=== PATIENT | male | born 1945 | race Caucasian/White ===

== ENCOUNTER → 2017-03-05 | Outpatient (CLI) | payer OTHER ==
--- NOTE | 2017-03-05 15:29 | DIAGNOSTIC IMAGING REPORT ---
VIDEO SWALLOW HISTORY: R13.10 dysphagia TECHNIQUE: Video fluoroscopic evaluation of swallowing was performed in the AP and lateral projections by the speech pathology staff. The patient is fed nectar-thick and thin liquid barium, a barium coated wafer, and barium pudding. FLUOROSCOPY TIME: 2.6 minutes. NUMBER OF FLUOROSCOPY IMAGES: 0 COMPARISON STUDY: 09/04/2009 FINDINGS: With swallowing thin liquid barium, there is penetration but no evidence of aspiration. There is slightly diminished hyoid excursion. There is vallecular and piriform sinus residue. There was no aspiration or penetration when swallowing nectar thick liquids pudding or cracker with paste. There is no aspiration when swallowing pudding. IMPRESSION: 1. Penetration when swallowing thin liquids but no evidence of aspiration 2. Lingular performed sinus residue 3. Please see the speech pathologist report for detailed findings and recommendations. Electronically signed by: Tripp Carreon M.D. 03/05/2017 3:28 PM Dictated Date/Time: 03/05/2017 3:22 PM
--- NOTE | 2017-03-05 18:11 | SWALLOWING EVALUATION ---
REFERRING SPEECH PATHOLOGIST: n/a HISTORY: This 71 year-old man was referred for a VFSS at [facility] in order to address c/o increasing solid food dysphagia. The patient has a PMH significant for CVA, hypertension, and previous VFSS in 2009. Results of the previous VFSS were: (+) evidence of dysmotility and spasm, (+) cricopharyngeal spasm, and no aspiration. Currently the patient's diet level is regular. PROCEDURE: The patient was seen in the Radiology Department of [facility] for the VFSS. Cursory examination of the oral cavity revealed adequate dentition. Movement of the articulators was WNL. The patient was seated on a stool and was viewed in both the Anterior-Posterior (A-P) and Lateral planes. Volitional phonation exercises completed in the A-P plane revealed bilateral vocal fold movement and vocal intensity within functional limits. In the lateral plane, the patient was given the following boluses: 1 tsp. thin liquid barium x 2, single swallow thin liquid barium self-presented from a cup, sequential swallows of thin liquid barium self-presented from a cup, 1 tsp. nectar-thick liquid barium, single swallow nectar-thick liquid barium self-presented from a cup, 1 tsp. barium pudding, and 1 club cracker with barium pudding. The patient was then repositioned into the A-P plane and given 1 tsp. barium pudding. RESULTS: Oral Stage: Lip closure weak as evidenced by anterior thin liquid bolus loss from (L) labial juncture with bolus escape progressing beyond mid chin. There was decreased lingual control during oral bolus hold as evidenced by posterior escape of less than half the bolus during oral bolus hold exercise. Timely and efficient mastication and brisk tongue motion for posterior bolus transport. Trace residue lined the oral cavity after swallowing. Initiation of pharyngeal swallowing occurred when the bolus head was in the valleculae. Mild generalized weakness evidenced during the oral stage of the swallow. Pharyngeal Stage: No bolus between the soft palate and pharyngeal wall. Partial laryngeal elevation with partial approximation of the arytenoids to the epiglottic petiole. No anterior hyoid excursion. Complete epiglottic inversion. Incomplete laryngeal vestibular closure. Diminished pharyngeal stripping wave. Bilateral bulging of the valleculae and pyriform sinuses demonstrating weakened pharyngeal contraction. Minimal distention and duration of the PES opening with marked obstruction of flow. Narrow column of contrast between the tongue base and pharyngeal wall. Minimal pharyngeal clearance of solid food boluses after the swallow. It should also be noted that there is evidence of cricopharyngeal impression on the esophageal lumen. Disordered hyoid motion and PES opening are the most significant contributors to moderate-severe pharyngeal dysphagia. There was no pascual aspiration during this study. There was pascual penetration of thin liquid x 1 that was recovered by the patient with a throat-clear response. Esophageal Stage: Mild distal esophageal dysmotility noted as a pudding bolus transited the esophagus. SUMMARY/RECOMMENDATIONS: This patient presents with moderate oral-pharyngeal dysphagia. In addition, the patient presents with s/s mild esophageal dysfunction. The following is recommended: 1. SLIPPERY diet: choose foods that are moist, loose, slippery; avoid foods that are dry, doughy, pasty; use condiments liberally to make foods slippery 2. Compensatory Strategies: Alternate solids and liquids frequently during meals; drink warm liquids during meals and avoid icy cold beverages 3. Consideration of f/u with both ENT and GI services re: minimal PES opening. 4. Consideration of f/u with outpatient [facility] services for dysphagia therapy. A summary of the results and recommendations was discussed with the patient immediately following the study. He is anticipating f/u with the referring physician. He will need further orders from the physician in order to have further specialty interventions. Thank you for referral of this patient. Please contact me at if any additional information is needed.
== END | disposition home or self-care (01) ==
LOC: C.RAD 12:53
PROVIDERS: ATTEND Internal Medicine Geriatric Medicine
DX: R13.10 Dysphagia, unspecified (principal)

== ENCOUNTER 2023-04-28 16:49 | Inpatient (IN) ==
--- NOTE | 2023-04-28 17:06 | ED Triage Note ---
Date of Service April 28, 2023 Provider in Triage Author: Mirela Baltazar History of Present Illness This patient was briefly evaluated while in triage. An abbreviated physical exam was performed. This patient is a 78-year-old Male who presents to the ED for evaluation of chest pain. The patient was diagnosed with COVID at the beginning of the year. Has had pain in his chest and SOB with intermittent cough since his COVID. Gets SOB with exertion that is progressively getting worse. [facility] Physical Exam GENERAL: Non-toxic and in no acute distress. HEENT: Pupils equal. No obvious scleral icterus. HEART: Regular rate and rhythm. LUNGS: Clear to auscultation. No accessory muscle use. ABDOMEN: Soft, non-tender to palpation. NEURO: Alert and oriented. No obvious neurological deficits on quick neuro exam. Initial orders for labs and / or imaging were placed and patient was placed in the waiting area until a bed is available. Please see further documentation for the full ED course. MDM / Impression Impression Impression: Chest pain, Dyspnea
[2023-04-28] MEDS: SODIUM CHLORIDE 0.9% 500 ML IV STA (17:23)
--- NOTE | 2023-04-28 18:09 | Emergency Department Note ---
Impression & Plan Chest pain, Dyspnea ED Provider Note ED Provider Note NAME: ANKITA DYE AGE:78 SEX: Male : 1945 ARRIVES VIA: Private vehicle INFORMANT: Patient ED PROVIDER(s): Meagan Novoa DO CHIEF COMPLAINT: Chest pain, shortness of breath, referred from the [place] HPI: This is a 78-year male presents emergency ferment after [facility] complaining of chest pain and shortness of breath over the last several weeks. 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 He states after the symptoms began he will go and sit down and rest and then the symptoms will slowly dissipate. He states he did have COVID the beginning of March when symptoms first started he thought it was related to his recent COVID illness. He denies any leg swelling. He denies any radiation of the pain into his back, neck, or arm, states it is centrally located at the inferior aspect of the sternum. He denies any coming abdominal pain, nausea or vomiting. Denies dizziness or lightheadedness or accompanying diaphoresis. Patient states he has had a prior history of a heart attack several years ago. He does not routinely follow with cardiology. PAST MEDICAL HISTORY:See Below PAST SURGICAL HISTORY:See Below FAMILY HISTORY:See Below SOCIAL HISTORY:See Below HOME MEDICATIONS:See Below ALLERGIES:See Below VITALS:See Below PHYSICAL EXAMINATION: GENERAL: alert, well appearing, well nourished, no distress, non-toxic EYE EXAM: normal conjunctiva, PERRL and EOM's grossly intact OROPHARYNX: no exudate, no erythema, lips, buccal mucosa, and tongue normal and mucous membranes are moist NECK: supple, no nuchal rigidity, no adenopathy, non-tender LUNGS: Clear to auscultation. Normal chest wall mechanics, no w/r/r HEART: no murmurs, S1 normal and S2 normal ABDOMEN: abdomen soft, non-tender, normo-active bowel sounds, no masses, no rebound or guarding. BACK: Back is symmetrical on inspection and there is no deformity, no midline tenderness, no CVA tenderness. SKIN: no rashes, petechiae, orbruising UPPER EXTREMITIES: upper extremities are grossly normal. FROM, nml pulses b/l. LOWER EXTREMITIES: No pitting edema. FROM, nml pulses b/l. NEURO EXAM: Normal sensorium, cranial nerves II-XII grossly intact, normal speech, no facial droop,nogross weakness of arms, no gross weakness of legs. Gross sensation intact. No ataxia. Vital Signs: reviewed and remarkable Differential Diagnosis: acute coronary syndrome, pericarditis, pulmonary embolus, aortic dissection, pneumonia, pneumothorax, musculoskeletal pain, shingles, GERD, GI bleed, as well as others were considered MEDICAL DECISION MAKING: This is a 78-year-old male who presents with a concerning story for exertional chest pain and shortness of breath over the course of the last several weeks. He was afebrile and vital signs stable. Patient seen in a waiting room area as he presented on day of high volume and acuity initially. Labs drawn and sent, IV established, EKG and chest x-ray performed bedside interpreted by me. Patient was noted to have a left bundle branch block however this was present from 2 years ago as well. Patient states he does have a prior history of LA. Due to recent COVID infection, he was sent for CT angiography additionally, no PE or other acute vascular pathology noted. Given concern for cardiac etiology, case discussed with hospitalist team for additional evaluation and management. Patient's initial troponin negative, however feel he would benefit and is high risk for ACS given history and risk factors. Patient eventually was able to be placed in regular patient room was monitored on telemetry. Consultation(s): 2134: Discussed with Dr. Parada, [place] hospitalist team, for additional evaluation and management. ER Treatment Provided: See below Diagnostics Interpreted By Me: -ECG: Normal sinus at 75, normal axis, left bundle branch block, normal QTc, nonspecific ST/T wave changes; left bundle branch block noted on prior EKG from May 07, 2021 -Cardiac Monitoring: An order was placed for continuous cardiac monitoring. The monitor shows a rate of 68 with normal sinus rhythm. -Laboratory studies: As stated above and show below. -Imaging studies: X-ray Chest: A single view study of the chest was reviewed and was negative for cardiomegaly, focal infiltrate, effusion, pulmonary edema, or wide mediastinum. Triage Nursing Note Reviewed Prior/Outside Records Reviewed -prior echo reviewed Past Med/Surg History Medical History GERD (gastroesophageal reflux disease) Type 2 diabetes mellitus diet control Hyperlipidemia Hypertension History of CVA (cerebrovascular accident) (1995) Diverticulosis Surgical History S/P left inguinal hernia repair (05/23/21) Open Left Inguinal Hernia Repair with Mesh(Left) - Chris Guerrero MD, FACS 05/23/2021 History of esophagogastroduodenoscopy (EGD) History of colonoscopy History of tooth extraction History of tonsillectomy History of appendectomy Family History Father Diabetes Coronary heart disease Brother Diabetes Mother Stroke Other No family history of adverse response to anesthesia Denies family history of Colon cancer Ovarian cancer Prostate cancer Myocardial infarction Breast cancer Social History Smoking Status: Never smoker Tobacco Type: Cigarettes Age Started Using Tobacco: 11; Age Quit Using Tobacco: 51; packs per day: 1; Cigarettes Per Day: 20; Second Hand Exposure: No; Do You Dip or Chew Tobacco: No; Hx Alcohol Use: No Hx Substance Use: No Preferred Language: Spanish Communication Ability: Effective Visual Impairment: No Limitations Hearing Ability: Use of Hearing Aid Soft Top Installer Required: No Beliefs That Will Affect Care: None marital status: Current Living Situation: Spouse current occupational status: retired 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 How many Children do You have: 3 Other Information That Helps Us Care for You: No Feels Safe at Home: Yes Safety Concerns: Feels Safe At This Time Childhood Exposure to Second-Hand Smoke: No Diet: regular caffeine: Yes during the past year weight has: remained stable Dental Care, Regularly: Yes Physical Activity Frequency: Daily Seatbelt Use: always Sunscreen Use: No Assistive Devices: Hearing Aid - Bilateral Allergies Allergies Allergy/AdvReac Type Severity Reaction Status Date / Time pravastatin Allergy Intermediate Itching Verified 04/28/23 21:42 simvastatin Allergy Intermediate Itching Verified 04/28/23 21:42 Sulfa (Sulfonamide Allergy Intermediate MAKES EYES Verified 04/28/23 20:22 Antibiotics) ITCHY Home Meds Home Medications Medication Instructions Recorded Confirmed ascorbic acid (vitamin C) 500 mg 500 mg PO DAILY 10/19/18 04/28/23 capsule aspirin 325 mg tablet 325 mg PO DAILY 10/19/18 04/28/23 blood sugar diagnostic (OneTouch #10 ea 10/19/18 12/23/22 Verio test strips) lancets (CartivaTouch UltraSoft #50 ea 10/19/18 12/23/22 Lancets) multivitamin (One Daily 1 tab PO DAILY 10/19/18 04/28/23 Multivitamin tablet) omeprazole 20 mg capsule,delayed 20 mg PO HS 05/15/21 04/28/23 release lisinopril 20 0 tab PO QAM 04/28/23 04/28/23 mg-hydrochlorothiazide 25 mg tablet loratadine 10 mg tablet (Claritin) 10 mg PO DAILY 04/28/23 04/28/23 rosuvastatin 20 mg tablet 0 mg PO DAILY Dyslipidemia 04/28/23 04/28/23 Results & Data (ED) Vital Signs Vital Signs - 24 hr 04/28/23 17:03 04/28/23 19:50 04/28/23 19:51 Temperature 36.7 C Temperature Source Temporal Artery Scan Pulse Rate 77 76 Respiratory Rate 18 15 Respiratory Effort / Characteristics Non-Labored Spontaneous Respiratory Depth Normal Respiratory Pattern Regular Blood Pressure 136/79 138/84 Blood Pressure Mean 98 102 Blood Pressure Position Sitting Pulse Oximetry 96 97 97 Oxygen Delivery Method Room Air Room Air Room Air Sepsis Recent Fever Within 48 Hours No Sepsis New/Unexplained Change in Mental Status N/A Sepsis Action Taken by Nursing No Action Required 04/28/23 19:51 04/28/23 20:00 04/28/23 20:30 Temperature Temperature Source Pulse Rate 73 67 Respiratory Rate 19 14 Respiratory Effort / Characteristics Respiratory Depth Respiratory Pattern Blood Pressure 130/82 149/81 H Blood Pressure Mean 98 103 Blood Pressure Position Pulse Oximetry 97 95 97 Oxygen Delivery Method Room Air Room Air Room Air Sepsis Recent Fever Within 48 Hours Sepsis New/Unexplained Change in Mental Status Sepsis Action Taken by Nursing 04/28/23 21:00 04/28/23 21:30 04/28/23 21:54 Temperature Temperature Source Pulse Rate 66 67 71 Respiratory Rate 17 15 Respiratory Effort / Characteristics Respiratory Depth Respiratory Pattern Blood Pressure 142/80 H 125/75 Blood Pressure Mean 100 91 Blood Pressure Position Pulse Oximetry 97 96 Oxygen Delivery Method Room Air Room Air Sepsis Recent Fever Within 48 Hours Sepsis New/Unexplained Change in Mental Status Sepsis Action Taken by Nursing 04/28/23 22:00 Temperature Temperature Source Pulse Rate 67 Respiratory Rate 21 Respiratory Effort / Characteristics Respiratory Depth Respiratory Pattern Blood Pressure 144/83 H Blood Pressure Mean 103 Blood Pressure Position Pulse Oximetry 96 Oxygen Delivery Method Room Air Sepsis Recent Fever Within 48 Hours Sepsis New/Unexplained Change in Mental Status Sepsis Action Taken by Nursing Laboratory Data 04/28/23 17:27 04/28/23 17:27 Lab Results 04/28/23 04/28/23 Range/Units 17:27 20:41 WBC 7.06 (4.8-10.8) K/ul RBC 5.59 (4.70-6.10) M/uL Hgb 16.3 (14.0-18.0) g/dl Hct 48.2 (42.0-52.0) % MCV 86.2 (80.0-100.0) fL MCH 29.2 (25.0-34.0) pg MCHC 33.8 (32.0-36.0) g/dL RDW Std Deviation 39.5 (36.4-46.3) fL RDW Coeff of Alexei 12.8 (11.5-14.5) % Plt Count 217 (130-400) K/uL MPV 9.9 (9.4-12.4) fL Immature Gran % (Auto) 0.4 % Neut % (Auto) 65.6 % Lymph % (Auto) 22.2 % [place] % (Auto) 10.1 % Eos % (Auto) 1.0 % Baso % (Auto) 0.7 % Neut # (Auto) 4.63 (1.40-6.50) K/uL Lymph # (Auto) 1.57 (1.20-3.40) K/uL [place] # (Auto) 0.71 H (0.11-0.59) K/uL Eos # (Auto) 0.07 (0.00-0.50) K/uL Baso # (Auto) 0.05 (0.00-0.20) K/uL Immature Gran # (Auto) 0.03 (0.01-0.20) K/uL PT 11.0 (9.0-12.0) Seconds INR 1.0 (0.9-1.1) APTT 27 (21-31) Seconds PTT Ratio 1.0 Sodium 134 L (136-145) mmol/L Potassium 4.1 (3.5-5.1) mmol/L Chloride 98 (98-107) mmol/L Carbon Dioxide 28 (21-32) mmol/L Anion Gap 8 (3-11) BUN 18 (6-23) mg/dl Creatinine 0.89 (0.6-1.4) mg/dl Est Cr Clr Drug Dosing 81.3 ml/min Est GFR ( Amer) 95.6 ml/min Est GFR (Non-Af Amer) 82.5 ml/min BUN/Creatinine Ratio 20.2 H (10-20) Glucose 154 H (70-99(Fasting)) mg/dl Calcium 9.6 (8.6-10.3) mg/dl Magnesium 1.8 (1.7-2.4) mg/dl Total Bilirubin 1.2 H (0.2-1.0) mg/dl AST 22 (13-39) U/L ALT 18 (7-52) U/L Alkaline Phosphatase 51 (34-104) U/L Troponin I High Sens 10.4 (0-20) pg/ml Total Protein 7.6 (6.0-8.3) gm/dl Albumin 4.2 (3.4-5.0) gm/dl Globulin 3.4 (2.5-4.0) gm/dl Albumin/Globulin Ratio 1.2 (0.9-2) Lipase 20 (11-82) U/L TSH 1.393 (0.300-4.500) uIu/ml Urine Color Yellow Urine Appearance Clear (Clear) Urine pH 6.5 (4.5-7.5) Ur Specific [place] > 1.045 H (1.000-1.030) Urine Protein Negative (Negative) Urine Glucose (UA) Negative (Negative) Urine Ketones Negative (Negative) Urine Blood Negative (Negative) Urine Nitrite Negative (Negative) Urine Bilirubin Negative (Negative) Urine Urobilinogen Negative (Negative) Ur Leukocyte Esterase Negative (Negative) Administered Medications Discontinued Medications Sodium Chloride (Nss) 500 mls @ 999 mls/hr IV .Q31M STA Stop: 04/28/23 17:36 Last Infusion: 04/28/23 20:06 Dose: Infused Documented By: Admin: 04/28/23 17:23 Dose: 999 mls/hr Documented By: SAMIR Magnesium Sulfate/Dextrose (Magnesium Sulfate / D5w) 1 gm in 100 mls @ 50 mls/hr IV ONE ONE Stop: 04/28/23 23:38 Last Infusion: 04/29/23 00:04 Dose: Infused Documented By: Admin: 04/28/23 22:01 Dose: 50 mls/hr Documented By: VANNESA Ioversol (Optiray 320 125ml) 116 ml IV ONCE ONE Stop: 04/28/23 19:17 Last Admin: 04/28/23 19:17 Dose: 116 ml Documented By: LITA Imaging Data Radiologist's Impression: Chest X-Ray 04/28/23 18:06 XR chest 1V portable CLINICAL HISTORY: cp, sob TECHNIQUE: Single frontal radiograph of the chest was obtained. Comparison: Comparison is made to chest radiograph 05/07/2021 FINDINGS: No lines and tubes are seen. Cardiomegaly is noted. Reticular interstitial opacities are seen. No evidence of pleural effusion or pneumothorax. IMPRESSION: No acute chest disease. ACT 112: Negative or not required by law. Electronically signed by: Emil Cota M.D. 04/28/2023 7:01 PM Chest CTA 04/28/23 18:09 Exam(s): CTA CHEST IV Amt: 116 ml optiray 320 EXAM: CT Angiography Chest With Intravenous Contrast CLINICAL HISTORY: Reason for exam: PE. TECHNIQUE: Axial computed tomographic angiography images of the chest with intravenous contrast. CTDI is 31 mGy and DLP is 824.65 mGy-cm. Automated exposure control was utilized for the study. A dose lowering technique was utilized adhering to the principles of ALARA. MIP reconstructed images were created and reviewed. COMPARISON: 04/20/2009. FINDINGS: Pulmonary arteries: Unremarkable. No pulmonary embolism. Aorta: Mild atherosclerotic disease of aorta with no aneurysm or dissection. Lungs: Minimal bulla in the right mid upper lung. Mild subpleural interstitial prominence with early honeycombing involving the lung bases concerning for early pulmonary fibrosis. There is multifocal multilobar basilar atelectasis, more significant within the bilateral lower lobes. No mass. Pleural space: Unremarkable. No significant effusion. No pneumothorax. Heart: Mild to moderate cardiomegaly with coronary artery calcifications. No significant pericardial effusion. No evidence of RV dysfunction. Bones/joints: No acute fracture. No dislocation. Soft tissues: Unremarkable. Lymph nodes: Unremarkable. No enlarged lymph nodes. Other findings: Visualized upper abdominal structures are unremarkable. Multilevel degenerative disease of the spine. IMPRESSION: 1. No pulmonary embolus or aortic dissection. 2. Findings suggestive of a chronic interstitial lung disease/early fibrosis, more significant in the lung bases/posterior lower lobes with superimposed multifocal basilar atelectasis. Otherwise no acute pulmonary process seen. Electronically signed by: Monse Hinojosa MD 04/28/23 20:26 PM Discharge Plan Visit Data Chief Complaint: Chest Pain Stated Complaint: CHEST PAIN ED Provider: Meagan Novoa Discharge Problem: Chest pain, Dyspnea Patient Disposition: Admitted As Inpatient Discharge Instructions Interventions: ED Discharge Assessment Last Done: 04/28/23 22:38
[2023-04-28 18:13] LABS: Basophils # (auto) 0.05 K/uL (0.00-0.20); Basophils % (auto) 0.7 %; Eosinophils # (auto) 0.07 K/uL (0.00-0.50); Hematocrit (blood only) 48.2 % (42.0-52.0); Hemoglobin 16.3 g/dl (14.0-18.0); Immature Granulocytes # (auto) 0.03 K/uL (0.01-0.20); Immature Granulocytes % (auto) 0.4 %; Lymphocytes # (auto) 1.57 K/uL (1.20-3.40); Lymphocytes % (auto) 22.2 %; Mean Corpuscular Hemoglobin 29.2 pg (25.0-34.0); Mean Corpuscular Hgb Conc 33.8 g/dL (32.0-36.0); Mean Corpuscular Volume 86.2 fL (80.0-100.0); Mean Platelet Volume 9.9 fL (9.4-12.4); Monocytes # (auto) 0.71 K/uL (0.11-0.59); Monocytes % (auto) 10.1 %; Neutrophils # (auto) 4.63 K/uL (1.40-6.50); Neutrophils % (auto) 65.6 %; Platelet Count 217 K/uL (130-400); RDW Coefficient of Variation 12.8 % (11.5-14.5); RDW Standard Deviation 39.5 fL (36.4-46.3); Red Blood Count 5.59 M/uL (4.70-6.10); White Blood Count 7.06 K/ul (4.8-10.8)
[2023-04-28 18:24] LABS: Albumin Globulin Ratio 1.2 (0.9-2); Albumin Level 4.2 gm/dl (3.4-5.0); BUN Creatinine Ratio 20.2 (10-20); Bilirubin,Total 1.2 mg/dl (0.2-1.0); Calcium 9.6 mg/dl (8.6-10.3); Creatinine Clr Calc Pharmacy 81.3 ml/min; Est GFR (African American) 95.6 ml/min; Est GFR (Non-African American) 82.5 ml/min; Globulin 3.4 gm/dl (2.5-4.0); Magnesium 1.8 mg/dl (1.7-2.4); Potassium 4.1 mmol/L (3.5-5.1); Total Protein 7.6 gm/dl (6.0-8.3)
[2023-04-28 18:29] LABS: Troponin I High Sensitivity 10.4 pg/ml (0-20)
[2023-04-28 18:34] LABS: Partial Thromboplastin Time 27 Seconds (21-31)
[2023-04-28 18:38] LABS: Thyroid Stimulating Hormone 1.393 uIu/ml (0.300-4.500)
--- NOTE | 2023-04-28 19:03 | XRay Report ---
XR chest 1V portable CLINICAL HISTORY: cp, sob TECHNIQUE: Single frontal radiograph of the chest was obtained. Comparison: Comparison is made to chest radiograph 05/07/2021 FINDINGS: No lines and tubes are seen. Cardiomegaly is noted. Reticular interstitial opacities are seen. No guzman dence of pleural effusion or pneumothorax. IMPRESSION: No acute chest disease. ACT 112: Negative or not required by law. Electronically signed by: Emil Cota M.D. 04/28/2023 7:01 PM
[2023-04-28] MEDS: OPTIRAY 320 125ml IV ONE (19:17)
--- NOTE | 2023-04-28 20:27 | CT Scan Report ---
Exam(s): CTA CHEST IV Amt: 116 ml optiray 320 EXAM: CT Angiography Chest With Intravenous Contrast CLINICAL HISTORY: Reason for exam: PE. TECHNIQUE: Axial computed tomographic angiography images of the chest with intravenous contrast. CTDI is 31 mGy and DLP is 824.65 mGy-cm. Automated exposure control was utilized for the study. A dose lowering technique was utilized adhering to the principles of ALARA. MIP reconstructed images were created and reviewed. COMPARISON: 04/20/2009. FINDINGS: Pulmonary arteries: Unremarkable. No pulmonary embolism. Aorta: Mild atherosclerotic disease of aorta with no aneurysm or dissection. Lungs: Minimal bulla in the right mid upper lung. Mild subpleural interstitial prominence with early honeycombing involving the lung bases concerning for early pulmonary fibrosis. There is multifocal multilobar basilar atelectasis, more significant within the bilateral lower lobes. No mass. Pleural space: Unremarkable. No significant effusion. No pneumothorax. Heart: Mild to moderate cardiomegaly with coronary artery calcifications. No significant pericardial effusion. No evidence of RV dysfunction. Bones/joints: No acute fracture. No dislocation. Soft tissues: Unremarkable. Lymph nodes: Unremarkable. No enlarged lymph nodes. Other findings: Visualized upper abdominal structures are unremarkable. Multilevel degenerative disease of the spine. IMPRESSION: 1. No pulmonary embolus or aortic dissection. 2. Findings suggestive of a chronic interstitial lung disease/early fibrosis, more significant in the lung bases/posterior lower lobes with superimposed multifocal basilar atelectasis. Otherwise no acute pulmonary process seen. Electronically signed by: Monse Hinojosa MD 04/28/23 20:26 PM
[2023-04-28 21:01] LABS: Appearance Urine Clear (Clear); Bilirubin Urine Negative (Negative); Blood Urine Negative (Negative); Color Urine Yellow; Glucose Urine UA Negative (Negative); Ketones Urine Negative (Negative); Leukocyte Esterase Urine Negative (Negative); Nitrite Urine Negative (Negative); Protein Urine Negative (Negative); Specific Gravity Urine > 1.045 (1.000-1.030); Urobilinogen Urine Negative (Negative); pH Urine 6.5 (4.5-7.5)
--- NOTE | 2023-04-28 21:39 | History & Physical Report ---
Date of Service April 28, 2023 Assessment & Plan (1) Chest pain: Plan: Worsening SAXENA and sternal pain with exertion x 1 month Patient notes that he was out chopping wood with his chainsaw, and developed substernal chest pain that resolved when sitting down Per patient, the chest pain has been exertional / predictable; stable angina Troponin WNL x2 EKG revealed NSR at 75 bpm; QTc 442; LBBB noted with some morphology change, however does not meet Sgarbossa's criteria for discordant ST elevation >5mm Review of prior EKG in April 2021 showed a nonspecific intraventricular conduction block with widened QRS; LBBB present at this time Chest CTA revealed no PE or aortic dissection; chronic interstitial lung disease and fibrosis CXR NAF TSH WNL Continue telemetry monitoring Stress Echo ordered, pending A.m. CBC, BMP, Mag (2) Type 2 diabetes mellitus: Plan: Diet controlled; not currently on medications Last A1c at 6.9% on 02/17/2023 Glucose 154 on admission Hold insulin for now T2DM diet BSG ACHS Adjust regimen as needed (3) Hyperlipidemia: Plan: Continue rosuvastatin (4) Hypertension: Plan: Continue lisinopril-HCTZ (5) GERD (gastroesophageal reflux disease): Plan: Continue omeprazole or pantoprazole equivalent (6) History of CVA (cerebrovascular accident): Plan: In 1992, per patient Continue ASA Plan Disposition: Obs - [facility] Telemetry Full code AHA, T2DM Diet VTE PPx: TEDs (consider adding chemical DVT PPx for extended stay) History of Present Illness Chief Complaint: Chest pain Primary Care Provider: CANDICE Reyes Kenneth is a pleasant 78-year-old male with PMH of T2DM, HTN, HLD, CVA, GERD, and diverticulosis. He presented for chest pain and SAXENA that has been worsening over the past month. Patient notes that he gets significantly winded when he goes out to chop wood with his chainsaw, but this resolves after sitting for a while. He endorses no CP at time of admission. When the pain comes on, it is located substernally; no radiation. Patient has not been taking anything for the pain, but notes he take ibuprofen on occassion for body aches. He took all of his regular morning medications; no recent change in medications. He does not take any medications for diabetes; reports he ahs been borderline and managing it with diet. He denies smoking / tobacco use; endorses occassional, social alcohol use. Hx of a stroke in 1995. No PMHx of MIs. Patient's also notes he may have had pericarditis in the past, but they are not sure. Patient does not use supplemental oxygen therapy at home. He notes he had COVID in March. 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 Vitals stable at time of admission. ED course: NSS 500 mL IV ROS: Patient endorses substernal chest pain with exertion, SAXENA, and neuropathy in feet (chronic). Patient denies fever, chills, nightsweats, dizziness, lightheadedness, JAMISON, L arm pain, L jaw pain/pressure, SOB at rest, back pain, pain between shoulder blades, abdominal pain, N/V/D, dysuria, burning with urination, and numbness/tingling/pain/redness in the arms or legs. Allergies Allergy/AdvReac Type Severity Reaction Status Date / Time pravastatin Allergy Intermediate Itching Verified 04/28/23 21:42 simvastatin Allergy Intermediate Itching Verified 04/28/23 21:42 Sulfa (Sulfonamide Allergy Intermediate MAKES EYES Verified 04/28/23 20:22 Antibiotics) ITCHY Home Medications Medication Instructions Recorded Confirmed Type ascorbic acid (vitamin C) 500 mg 500 mg PO DAILY 10/19/18 04/28/23 History capsule aspirin 325 mg tablet 325 mg PO DAILY 10/19/18 04/28/23 History blood sugar diagnostic (OneTouch #10 ea 10/19/18 12/23/22 History Verio test strips) lancets (Global Protein SolutionsTouch UltraSoft #50 ea 10/19/18 12/23/22 History Lancets) multivitamin (One Daily 1 tab PO DAILY 10/19/18 04/28/23 History Multivitamin tablet) omeprazole 20 mg capsule,delayed 20 mg PO HS 05/15/21 04/28/23 History release lisinopril 20 0 tab PO QAM 04/28/23 04/28/23 History mg-hydrochlorothiazide 25 mg tablet loratadine 10 mg tablet (Claritin) 10 mg PO DAILY 04/28/23 04/28/23 History rosuvastatin 20 mg tablet 0 mg PO DAILY Dyslipidemia 04/28/23 04/28/23 History Past Med/Surg History Medical History GERD (gastroesophageal reflux disease) Type 2 diabetes mellitus diet control Hyperlipidemia Hypertension History of CVA (cerebrovascular accident) (1995) Diverticulosis Surgical History S/P left inguinal hernia repair (05/23/21) Open Left Inguinal Hernia Repair with Mesh(Left) - Chris Guerrero MD, FACS 05/23/2021 History of esophagogastroduodenoscopy (EGD) History of colonoscopy History of tooth extraction History of tonsillectomy History of appendectomy Family History Father Diabetes Coronary heart disease Brother Diabetes Mother Stroke Other No family history of adverse response to anesthesia Denies family history of Colon cancer Ovarian cancer Prostate cancer Myocardial infarction Breast cancer Social History Smoking Status: Never smoker Tobacco Type: Cigarettes Age Started Using Tobacco: 11; Age Quit Using Tobacco: 51; packs per day: 1; Cigarettes Per Day: 20; Second Hand Exposure: No; Do You Dip or Chew Tobacco: No; Hx Alcohol Use: No Hx Substance Use: No Preferred Language: Lithuanian Communication Ability: Effective Visual Impairment: No Limitations Hearing Ability: Use of Hearing Aid Straightener Hand Required: No Beliefs That Will Affect Care: None marital status: Current Living Situation: Spouse current occupational status: retired 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 How many Children do You have: 3 Other Information That Helps Us Care for You: No Feels Safe at Home: Yes Safety Concerns: Feels Safe At This Time Childhood Exposure to Second-Hand Smoke: No Diet: regular caffeine: Yes during the past year weight has: remained stable Dental Care, Regularly: Yes Physical Activity Frequency: Daily Seatbelt Use: always Sunscreen Use: No Assistive Devices: Hearing Aid - Bilateral Review of Systems Review of Systems: See HPI above Physical Exam Physical Exam: General: no acute distress; non-toxic appearing; well-nourished; cooperative HEENT: normocephalic, atraumatic; no scleral icterus; PERRLA; moist mucus membrane; vision intact; hearing aids in place Neck: supple; no JVD; no lymphadenopathy; trachea midline Skin: warm, dry without signs of tenting; no cyanosis; no rashes, bruising, lesions, or erythema noted CV: mild TTP of the lower sternum; RRR; S1/S2 normal; no murmurs/rubs/gallops; pulses intact and symmetric at radial, DP, and PT Lungs: no acute respiratory distress; symmetrical chest wall expansion; clear breath sounds across all lung vogel w/o adventitious sounds; no wheezing ABD: Soft, NTP; BS present; no rebound/guarding; no rashes, brusing noted on the abdomen MSK: no tics or fasciculations; no edema noted in the LEs b/l, nonerythematous; patient demonstrates the ability to wiggle toes b/l Neuro: A&Ox3; normal mood and affect; fluent speech; no focal deficits; sensation grossly intact in the LEs b/l Results & Data Results & Data Vital Signs (Past 12 Hours) Vital Signs Temp Pulse Resp BP Pulse Ox O2 Del Method 04/28/23 21:00 66 17 142/80 H 97 Room Air 04/28/23 20:30 67 14 149/81 H 97 Room Air 04/28/23 20:00 73 19 130/82 95 Room Air 04/28/23 19:51 97 Room Air 04/28/23 19:51 97 Room Air 04/28/23 19:50 76 15 138/84 97 Room Air 04/28/23 17:03 36.7 C 77 18 136/79 96 Room Air Laboratory Results Abnormal lab results 04/28/23 04/28/23 Range/Units 17:27 20:41 Dolores # (Auto) 0.71 H (0.11-0.59) K/uL Sodium 134 L (136-145) mmol/L BUN/Creatinine Ratio 20.2 H (10-20) Glucose 154 H (70-99(Fasting)) mg/dl Total Bilirubin 1.2 H (0.2-1.0) mg/dl Ur Specific [place] > 1.045 H (1.000-1.030) Diagnostic Findings Chest X-Ray 04/28/23 18:06 XR chest 1V portable CLINICAL HISTORY: cp, sob TECHNIQUE: Single frontal radiograph of the chest was obtained. Comparison: Comparison is made to chest radiograph 05/07/2021 FINDINGS: No lines and tubes are seen. Cardiomegaly is noted. Reticular interstitial opacities are seen. No evidence of pleural effusion or pneumothorax. IMPRESSION: No acute chest disease. ACT 112: Negative or not required by law. Electronically signed by: Emil Cota M.D. 04/28/2023 7:01 PM Chest CTA 04/28/23 18:09 Exam(s): CTA CHEST IV Amt: 116 ml optiray 320 EXAM: CT Angiography Chest With Intravenous Contrast CLINICAL HISTORY: Reason for exam: PE. TECHNIQUE: Axial computed tomographic angiography images of the chest with intravenous contrast. CTDI is 31 mGy and DLP is 824.65 mGy-cm. Automated exposure control was utilized for the study. A dose lowering technique was utilized adhering to the principles of ALARA. MIP reconstructed images were created and reviewed. COMPARISON: 04/20/2009. FINDINGS: Pulmonary arteries: Unremarkable. No pulmonary embolism. Aorta: Mild atherosclerotic disease of aorta with no aneurysm or dissection. Lungs: Minimal bulla in the right mid upper lung. Mild subpleural interstitial prominence with early honeycombing involving the lung bases concerning for early pulmonary fibrosis. There is multifocal multilobar basilar atelectasis, more significant within the bilateral lower lobes. No mass. Pleural space: Unremarkable. No significant effusion. No pneumothorax. Heart: Mild to moderate cardiomegaly with coronary artery calcifications. No significant pericardial effusion. No evidence of RV dysfunction. Bones/joints: No acute fracture. No dislocation. Soft tissues: Unremarkable. Lymph nodes: Unremarkable. No enlarged lymph nodes. Other findings: Visualized upper abdominal structures are unremarkable. Multilevel degenerative disease of the spine. IMPRESSION: 1. No pulmonary embolus or aortic dissection. 2. Findings suggestive of a chronic interstitial lung disease/early fibrosis, more significant in the lung bases/posterior lower lobes with superimposed multifocal basilar atelectasis. Otherwise no acute pulmonary process seen. Electronically signed by: Monse Hinojosa MD 04/28/23 20:26 PM Code Status & VTE Plan Code Status Full code VTE Prophylaxis Plan VTE Prophylaxis will be ordered: Yes PG Care Time/CCT Total # of Minutes Spent Total Time Spent with Patient: Total time spent is greater than 50% in coordination of care (as documented) at patient's floor/unit and/or counseling patient: Coding [place] [address] INT INP/OBS CARE MIN Patient Type Established History Detailed Exam Detailed Medical Decision Making Low Complexity Diagnoses Chest pain R07.9 Type 2 diabetes mellitus E11.9 Hyperlipidemia E78.5 Hypertension I10 GERD (gastroesophageal reflux disease) K21.9 History of CVA (cerebrovascular accident) Z86.73
[2023-04-28] MEDS: MAGNESIUM SULFATE / D5W 1 GM/100 ML BAG IV ONE (22:01)
[2023-04-28] MEDS ORDERED: GLUCAGON FOR INJ 1 MG VIAL SQ PRN (23:08)
[2023-04-28] MEDS ORDERED: DEXTROSE 50% 50 ML SYRINGE IV PRN (23:08)
[2023-04-28] MEDS ORDERED: GLUCOSE 40% GEL 15 GM TUBE PO PRN (23:08)
[2023-04-28] MEDS ORDERED: GLUCOSE 10 TAB/TUBE PO PRN (23:08)
[2023-04-28] MEDS ORDERED: ONDANSETRON INJ 2 MG/ML 2 ML VIAL IV PRN (23:08)
[2023-04-28] MEDS ORDERED: ACETAMINOPHEN 325 MG TAB PO PRN (23:08)
[2023-04-28] MEDS ORDERED: CARBOHYDRATES FOR HYPOGLYCEMIA PO PRN (23:08)
[2023-04-29 07:25] LABS: Basophils # (auto) 0.07 K/uL (0.00-0.20); Basophils % (auto) 1.1 %; Eosinophils # (auto) 0.11 K/uL (0.00-0.50); Eosinophils % (auto) 1.7 %; Hematocrit (blood only) 45.3 % (42.0-52.0); Hemoglobin 15.9 g/dl (14.0-18.0); Immature Granulocytes # (auto) 0.02 K/uL (0.01-0.20); Immature Granulocytes % (auto) 0.3 %; Lymphocytes # (auto) 1.32 K/uL (1.20-3.40); Lymphocytes % (auto) 20.6 %; Mean Corpuscular Hemoglobin 30.1 pg (25.0-34.0); Mean Corpuscular Hgb Conc 35.1 g/dL (32.0-36.0); Mean Corpuscular Volume 85.6 fL (80.0-100.0); Mean Platelet Volume 9.5 fL (9.4-12.4); Monocytes # (auto) 0.68 K/uL (0.11-0.59); Monocytes % (auto) 10.6 %; Neutrophils # (auto) 4.21 K/uL (1.40-6.50); Neutrophils % (auto) 65.7 %; Platelet Count 189 K/uL (130-400); RDW Standard Deviation 40.1 fL (36.4-46.3); Red Blood Count 5.29 M/uL (4.70-6.10); White Blood Count 6.41 K/ul (4.8-10.8)
[2023-04-29] MEDS: ASPIRIN 325 MG ECTAB PO SCH (08:17)
[2023-04-29] MEDS: LISINOPRIL/HCTZ 20/25MG 1 TAB PO SCH (08:17)
[2023-04-29] MEDS: ROSUVASTATIN CALCIUM 20 MG TAB PO SCH (08:17)
[2023-04-29 08:34] LABS: Calcium 9.5 mg/dl (8.6-10.3); Potassium 4.2 mmol/L (3.5-5.1)
[2023-04-29 08:40] LABS: BUN Creatinine Ratio 22.4 (10-20); Creatinine Clr Calc Pharmacy 107.9 ml/min; Est GFR (African American) 107.4 ml/min; Est GFR (Non-African American) 92.7 ml/min
--- NOTE | 2023-04-29 11:12 | Cardiology Consultation ---
Date of Consultation April 29, 2023 Assessment & Plan (1) Exertional angina: (2) Hypertension: (3) Hyperlipidemia: (4) Dyspnea on exertion: (5) LBBB (left bundle branch block): Plan ASSESSMENT/PLAN: 1. Angina: Symptoms concerning for angina and has multiple risk factors for CAD. Discussed ischemic evaluation. Stress echo inappropriate given left bundle branch block and he seems high risk for CAD based on symptoms and risk factors. Recommend cardiac catheterization. Risks and benefits were discussed with him in detail and he was made aware that CT surgery is not available at this facility. He was agreeable to proceed but has concerns that the CT may not cover it. Asked hospitalist service to touch base with care coordination to research his concerns. N.p.o. for now except for medications. Continue aspirin. Heparin drip not necessary as he has not had symptoms for approximately 1 week and troponins are negative. 2. Left bundle branch block: Discussed findings on ECG. Plan as above. Formal review of echo is pending. 3. Dyspnea on exertion: Cardiac evaluation as above. Also has findings on CT scan concerning for interstitial lung disease or pulmonary fibrosis per radiology. As per primary hospitalist service or potentially pulmonology at some point. He appears euvolemic. 4. Hypertension: Blood pressure mostly normotensive. Continue current regimen. If found to have CAD, would recommend beta-edenilson if tolerated. 5. Dyslipidemia: Continue high intensity statin therapy. Most recent LDL was less than 70. 6. Disposition: Cardiac catheter[facility] pending[facility]. Patient care communicated with Dr. Shah of the primary hospitalist service. Addendum: His came to the hospital. She states that he has been experiencing chest discomfort on a daily basis, including walking only 20 yards. This was once again discussed with him and he agreed. Although he denied having chest pain the day he came here when initially seen today, his states that he was having chest discomfort which prompted the visit. He agrees with this. He underwent cardiac catheterization and was found to have multivessel CAD including a complex proximal to mid LAD stenosis across large diagonal and SHAYNA II flow in the LAD. Circumflex had moderate to severe CAD and large OM with severe CAD. Small nondominant RCA with severe CAD. Recommend aspirin 81 mg daily. High intensity statin therapy. Given SHAYNA II flow and recurrent symptoms with minimal exertion based on discussion this afternoon, recommend heparin drip for now. Start low-dose beta-edenilson in the form of metoprolol tartrate 25 mg twice daily. Recommend transfer to CT surgery capable center for evaluation of CABG by CT surgery. Findings were discussed with he and his and other family members at the bedside. At the present time, patient is not sure where he would like to be transferred. He was asked to give it some thought and let us know once decided upon. Highly complex medical issues. Thank you for allowing me to participate in the care of your patient. Please call for any other questions or concerns. Sincerely, James Burnham M.D. Total time spent today was 80 minutes (not counting procedures), including [id number] time, counseling patient, coordinating care, updating family members, discussion with hospitalist service, transfer center, reviewing records, and completing documentation. History of Present Illness Reason for Consultation: chest pain Requesting Physician: Ty Shah Attending Physician: Ty Shah History of Present Illness Mr. Jones is a very pleasant 78-year-old gentleman with a history significant for type 2 diabetes, hypertension, dyslipidemia, prior tobacco abuse, stroke, and acid reflux. Since February 2023, he has been experiencing a substernal chest discomfort described as "just hurts" with associated shortness of breath. There is no radiation of the discomfort. It occurs when walking longer distances or with more strenuous activities. The severity improves quickly with rest but some form of discomfort can last up to 4 hours. His last significant episode was 1 week ago. But given the intermittent symptoms, he decided to come to the emergency department on 04/28/2023 and was admitted. His ECG demonstrated left bundle branch block. An exercise stress echo was ordered by the admitting team, which was canceled due to left bundle branch block. He denies melena, hematochezia, hematuria, or other bleeding. He denies syncope, near syncope, palpitations, or edema. He remains active. Review of systems: As above. Review of systems otherwise negative/unremarkable. Family history: Father had CABG at approximately 66 years of age. Social history: He quit smoking 20 or 30 years ago after smoking 1 to 2 packs/day. Occasional alcohol. Lives at home with his . Has 3 children. Retired but previously worked with [employer] at [employer]. He was unaccompanied. Allergies Allergy/AdvReac Type Severity Reaction Status Date / Time pravastatin Allergy Intermediate Itching Verified 04/28/23 21:42 simvastatin Allergy Intermediate Itching Verified 04/28/23 21:42 Sulfa (Sulfonamide Allergy Intermediate MAKES EYES Verified 04/28/23 20:22 Antibiotics) ITCHY Home Medications Medication Instructions Recorded Confirmed Type ascorbic acid (vitamin C) 500 mg 500 mg PO DAILY 10/19/18 04/28/23 History capsule aspirin 325 mg tablet 325 mg PO DAILY 10/19/18 04/28/23 History blood sugar diagnostic (OneTouch #10 ea 10/19/18 12/23/22 History Verio test strips) lancets (VentriPoint DiagnosticsTouch UltraSoft #50 ea 10/19/18 12/23/22 History Lancets) multivitamin (One Daily 1 tab PO DAILY 10/19/18 04/28/23 History Multivitamin tablet) omeprazole 20 mg capsule,delayed 20 mg PO HS 05/15/21 04/28/23 History release lisinopril 20 0 tab PO QAM 04/28/23 04/28/23 History mg-hydrochlorothiazide 25 mg tablet loratadine 10 mg tablet (Claritin) 10 mg PO DAILY 04/28/23 04/28/23 History rosuvastatin 20 mg tablet 0 mg PO DAILY Dyslipidemia 04/28/23 04/28/23 History Patient History Medical History GERD (gastroesophageal reflux disease) Type 2 diabetes mellitus diet control Hyperlipidemia Hypertension History of CVA (cerebrovascular accident) (1995) Diverticulosis Surgical History S/P left inguinal hernia repair (05/23/21) Open Left Inguinal Hernia Repair with Mesh(Left) - Chris Guerrero MD, FACS 05/23/2021 History of esophagogastroduodenoscopy (EGD) History of colonoscopy History of tooth extraction History of tonsillectomy History of appendectomy Family History Father Diabetes Coronary heart disease Brother Diabetes Mother Stroke Other No family history of adverse response to anesthesia Denies family history of Colon cancer Ovarian cancer Prostate cancer Myocardial infarction Breast cancer Social History Smoking Status: Never smoker Tobacco Type: Cigarettes Age Started Using Tobacco: 11; Age Quit Using Tobacco: 51; packs per day: 1; Cigarettes Per Day: 20; Second Hand Exposure: No; Do You Dip or Chew Tobacco: No; Hx Alcohol Use: No Hx Substance Use: No Preferred Language: Pashto Communication Ability: Effective Visual Impairment: No Limitations Hearing Ability: Use of Hearing Aid 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: No Beliefs That Will Affect Care: None marital status: Current Living Situation: Spouse current occupational status: retired 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 Alert and oriented. HEENT: Anicteric sclera. Neck: No JVD. No bruits. Normal carotid upstrokes bilaterally. Cardiac: No ventricular heave. Regular. Normal S1-S2. No murmurs, rubs, or gallops. Pulmonary: Clear to auscultation bilaterally without wheezes, rales, or rhonchi. Abdomen: Soft, nontender, nondistended, with normoactive bowel sounds. No bruits noted. Extremities: 2+ radial pulses bilaterally. 2+ posterior tibialis pulses bilaterally. No edema or cyanosis. Psychiatric: Affect appears appropriate. Results & Data Vital Signs (Past 12 Hours) Vital Signs Temp Pulse Pulse Resp BP Pulse Ox Pulse Ox 04/29/23 07:56 36.2 C L 71 16 114/70 96 04/29/23 07:06 69 04/28/23 23:14 96 04/28/23 23:13 36.4 C L 67 18 150/81 H 95 O2 Del Method O2 Del Method 04/29/23 07:56 Room Air 04/29/23 07:06 04/28/23 23:14 Room Air 04/28/23 23:13 Room Air Laboratory Results Laboratory Results - last 24 hr 04/28/23 04/28/23 04/28/23 17:27 20:41 23:41 WBC 7.06 RBC 5.59 Hgb 16.3 Hct 48.2 MCV 86.2 MCH 29.2 MCHC 33.8 RDW Std Deviation 39.5 RDW Coeff of Alexei 12.8 Plt Count 217 MPV 9.9 Immature Gran % (Auto) 0.4 Neut % (Auto) 65.6 Lymph % (Auto) 22.2 [place] % (Auto) 10.1 Eos % (Auto) 1.0 Baso % (Auto) 0.7 Neut # (Auto) 4.63 Lymph # (Auto) 1.57 [place] # (Auto) 0.71 H Eos # (Auto) 0.07 Baso # (Auto) 0.05 Immature Gran # (Auto) 0.03 PT 11.0 INR 1.0 APTT 27 PTT Ratio 1.0 Sodium 134 L Potassium 4.1 Chloride 98 Carbon Dioxide 28 Anion Gap 8 BUN 18 Creatinine 0.89 Est Cr Clr Drug Dosing 81.3 Est GFR ( Amer) 95.6 Est GFR (Non-Af Amer) 82.5 BUN/Creatinine Ratio 20.2 H Glucose 154 H POC Glucose Calcium 9.6 Magnesium 1.8 Total Bilirubin 1.2 H AST 22 ALT 18 Alkaline Phosphatase 51 Troponin I High Sens 10.4 11.1 Total Protein 7.6 Albumin 4.2 Globulin 3.4 Albumin/Globulin Ratio 1.2 Lipase 20 TSH 1.393 Urine Color Yellow Urine Appearance Clear Urine pH 6.5 Ur Specific Stickney > 1.045 H Urine Protein Negative Urine Glucose (UA) Negative Urine Ketones Negative Urine Blood Negative Urine Nitrite Negative Urine Bilirubin Negative Urine Urobilinogen Negative Ur Leukocyte Esterase Negative 04/29/23 04/29/23 06:57 08:16 WBC 6.41 RBC 5.29 Hgb 15.9 Hct 45.3 MCV 85.6 MCH 30.1 MCHC 35.1 RDW Std Deviation 40.1 RDW Coeff of Alexei 13.0 Plt Count 189 MPV 9.5 Immature Gran % (Auto) 0.3 Neut % (Auto) 65.7 Lymph % (Auto) 20.6 [place] % (Auto) 10.6 Eos % (Auto) 1.7 Baso % (Auto) 1.1 Neut # (Auto) 4.21 Lymph # (Auto) 1.32 [place] # (Auto) 0.68 H Eos # (Auto) 0.11 Baso # (Auto) 0.07 Immature Gran # (Auto) 0.02 PT INR APTT PTT Ratio Sodium 137 Potassium 4.2 Chloride 102 Carbon Dioxide 29 Anion Gap 6 BUN 15 Creatinine 0.67 Est Cr Clr Drug Dosing 107.9 Est GFR ( Amer) 107.4 Est GFR (Non-Af Amer) 92.7 BUN/Creatinine Ratio 22.4 H Glucose 132 H POC Glucose 130 H Calcium 9.5 Magnesium 2.0 Total Bilirubin AST ALT Alkaline Phosphatase Troponin I High Sens Total Protein Albumin Globulin Albumin/Globulin Ratio Lipase TSH Urine Color Urine Appearance Urine pH Ur Specific Stick[place] Urine Protein Urine Glucose (UA) Urine Ketones Urine Blood Urine Nitrite Urine Bilirubin Urine Urobilinogen Ur Leukocyte Esterase Diagnostic Findings History and physical report reviewed. ECGs personally reviewed: ECG 04/28/2023 1711: Sinus rhythm 75 bpm. LBBB. ECG 04/29/2013 at 10:13 AM: Sinus rhythm 74 bpm. LBBB. ECG 05/07/2021 1427: Sinus rhythm with IVCD. CTA chest 04/28/2023: No PE or aortic dissection. Chronic interstitial lung disease/early fibrosis per radiology. Mild to moderate cardiomegaly with coronary artery calcifications. Labs reviewed and notable for normal renal function, normal potassium, normal tr ansaminase levels, high-sensitivity troponin negative x 2, normal magnesium, elevated A1c, well-controlled LDL, normal blood counts. Medications Administered Current Inpatient Medications Acetaminophen (Acetaminophen 325 Mg Tab) 650 mg PO Q4H PRN PRN Reason: Pain or Fever Stop: 05/28/23 23:07 Aspirin (Aspirin 325 Mg Ectab) 325 mg PO DAILY [facility] Stop: 05/29/23 08:59 Last Admin: 04/29/23 08:17 Dose: 325 mg Dextrose (Dextrose 50% 50 Ml Syringe) 25 - 50 ml IV UD PRN; Protocol PRN Reason: Hypoglycemia Protocol Stop: 05/28/23 23:07 Glucagon (Glucagon For Inj 1 Mg Vial) 1 mg SQ UD PRN; Protocol PRN Reason: Hypoglycemia Protocol Stop: 05/28/23 23:07 Glucose (Glucose 10 Tab/Tube) 4 - 8 tab PO UD PRN; Protocol PRN Reason: Hypoglycemia Treatment Stop: 05/28/23 23:07 Glucose (Glucose 40% Gel 15 Gm Tube) 15 - 30 gm PO UD PRN; Protocol PRN Reason: Hypoglycemia Protocol Stop: 05/28/23 23:07 Lisinopril/HCTZ (Lisinopril/Hctz 20/25mg 1 Tab) 1 tab PO QAM IMELDA Stop: 05/29/23 08:59 Last Admin: 04/29/23 08:17 Dose: 1 tab Miscellaneous (Carbohydrates For Hypoglycemia ) 15 - 30 gm PO UD PRN PRN Reason: Hypoglycemia Protocol Stop: 05/28/23 23:07 Ondansetron HCl (Ondansetron Inj 2 Mg/Ml 2 Ml Vial) 4 mg IV Q6H PRN PRN Reason: Nausea Stop: 05/28/23 23:07 Pantoprazole Sodium (Pantoprazole 40 Mg Tab) 40 mg PO HS IMELDA Stop: 05/29/23 20:59 Rosuvastatin Calcium (Rosuvastatin Calcium 20 Mg Tab) 20 mg PO DAILY IMELDA Stop: 05/29/23 08:59 Last Admin: 04/29/23 08:17 Dose: 20 mg PG Care Time/CCT Total # of Minutes Spent Total Time Spent: 80 Total Time Spent with Patient: Total time spent is greater than 50% in coordination of care (as documented) at patient's floor/unit and/or counseling patient: Coding Level of Care Code 85400 INT INP/OBS CARE 3/75MIN Diagnoses Exertional angina I20.89 Hypertension I10 Hyperlipidemia E78.5 Dyspnea on exertion R06.09 LBBB (left bundle branch block) I44.7 Time Spent (min) 80
--- NOTE | 2023-04-29 12:52 | Pre Anesthesia Assessment ---
Date of Service April 29, 2023 Pre Sedation Assessment Vital Signs Temp Pulse Pulse Resp BP BP Pulse Ox 04/29/23 11:30 36.4 C L 16 119/70 96 04/29/23 07:56 36.2 C L 71 16 114/70 96 04/29/23 07:06 69 04/28/23 23:14 04/28/23 23:13 36.4 C L 67 18 150/81 H 95 04/28/23 22:30 67 20 132/77 94 04/28/23 22:00 67 21 144/83 H 96 04/28/23 21:54 71 04/28/23 21:30 67 15 125/75 96 04/28/23 21:00 66 17 142/80 H 97 04/28/23 20:30 67 14 149/81 H 97 04/28/23 20:00 73 19 130/82 95 04/28/23 19:51 97 04/28/23 19:51 97 04/28/23 19:50 76 15 138/84 97 04/28/23 17:03 36.7 C 77 18 136/79 96 Pulse Ox O2 Del Method O2 Del Method 04/29/23 11:30 Room Air 04/29/23 07:56 Room Air 04/29/23 07:06 04/28/23 23:14 96 Room Air 04/28/23 23:13 Room Air 04/28/23 22:30 Room Air 04/28/23 22:00 Room Air 04/28/23 21:54 04/28/23 21:30 Room Air 04/28/23 21:00 Room Air 04/28/23 20:30 Room Air 04/28/23 20:00 Room Air 04/28/23 19:51 Room Air 04/28/23 19:51 Room Air 04/28/23 19:50 Room Air 04/28/23 17:03 Room Air Cardiovascular RRR, no murmur, no edema Respiratory normal respiratory effort, lungs clear to auscultation Pre-Sedation Airway Assessment Smoking Status: Never smoker Mallampati Class: III ASA: ASA3 NPO Status Date of Last Intake of Fluids: 04/29/23 Time of Last Intake of Fluids: 08:00 Date of Last Intake of Solid Food: 04/29/23 Time of Last Intake of Solid Foods: 08:00 Last Intake of Solids Comment: light breakfast Procedure Planning Contraindications for Sedation: none Current Medications Reviewed: Yes Notes The planned sedation has been discussed with the patient. Informed Consent was obtained. I have identified the patient, determined the appropriateness of sedation and have assessed the patient immediately prior to the procedure. All medicine(s) and interventions are by my order.
[2023-04-29] MEDS: fentaNYL citrate PF 100 MCG/2 ML VIAL ONE (16:11)
[2023-04-29] MEDS: MIDAZOLAM HCL 1 MG/ML 2ML VIAL ONE (16:12)
[2023-04-29] MEDS: HEPARIN (PORCINE) 1000 UNIT/ML 10 ML (CATH LAB USE ONLY) ONE (16:12)
[2023-04-29] MEDS: niCARdipine HCL INJ 2.5 MG/ML 10 ML AMP ONE (16:12)
[2023-04-29] MEDS: NITROGLYCERIN/D5W 100MCG/ML 20ML SYR ONE (16:13)
[2023-04-29] MEDS: OPTIRAY 350 ONE (16:13)
--- NOTE | 2023-04-29 16:22 | Post Operative Brief Note ---
Cardiology Brief Post Op Date of Surgery April 29, 2023 Pre & Post Diagnosis Operation Date: 04/29/23 12:45 <No data on this case meets the specified criteria> Procedure Coronary angiography and left heart catheterization Show Operations Supervisor Cristiano Burnham MD Batch And Furnace Operator Deibler Estimated Blood Loss 20 Findings See Below Preliminary report: Multivessel CAD including severe proximal to mid LAD CAD with SHAYNA II flow. Moderate to severe dominant circumflex CAD and severe CAD involving large marginal branch. Nondominant RCA. Reviewed images with interventional cardiology. Recommend CT surgery evaluation for CABG. Full report to follow.
--- NOTE | 2023-04-29 16:22 | Post Anesthesia Assessment ---
Date of Service April 29, 2023 Post Sedation Assessment Vital Signs Temp Pulse Pulse Pulse Resp BP BP 04/29/23 16:15 71 16 04/29/23 13:05 87 16 132/81 04/29/23 11:30 36.4 C L 16 119/70 04/29/23 07:56 36.2 C L 71 16 114/70 04/29/23 07:06 69 04/28/23 23:14 04/28/23 23:13 36.4 C L 67 18 150/81 H 04/28/23 22:30 67 20 132/77 04/28/23 22:00 67 21 144/83 H 04/28/23 21:54 71 04/28/23 21:30 67 15 125/75 04/28/23 21:00 66 17 142/80 H 04/28/23 20:30 67 14 149/81 H 04/28/23 20:00 73 19 130/82 04/28/23 19:51 04/28/23 19:51 04/28/23 19:50 76 15 138/84 04/28/23 17:03 36.7 C 77 18 136/79 BP Pulse Ox Pulse Ox O2 Del Method O2 Del Method 04/29/23 16:15 123/84 93 Room Air 04/29/23 13:05 96 Room Air 04/29/23 11:30 96 Room Air 04/29/23 07:56 96 Room Air 04/29/23 07:06 04/28/23 23:14 96 Room Air 04/28/23 23:13 95 Room Air 04/28/23 22:30 94 Room Air 04/28/23 22:00 96 Room Air 04/28/23 21:54 04/28/23 21:30 96 Room Air 04/28/23 21:00 97 Room Air 04/28/23 20:30 97 Room Air 04/28/23 20:00 95 Room Air 04/28/23 19:51 97 Room Air 04/28/23 19:51 97 Room Air 04/28/23 19:50 97 Room Air 04/28/23 17:03 96 Room Air Recovery Score Activity: Moves 4 extremities Respiration: Deep Breath/Cough Circulation: +/-20% PreAnes Value Consciousness: Fully Awake Oxygen Saturation: > 92% On Room Air Post Anesthesia Score: 10 Discharge Sedation Level of Care: Fast Track Phase II Post Sedation Plan On clinical assessment, the patient appears to have tolerated the sedation without complications. Patient is recovering as anticipated. Patient will continue to be monitored by nursing and may be discharged when sedation discharge criteria are met per below protocol. Upon Completions of procedure up to 15 minutes continue every 5 minute vital signs and the P.A.R. score; then discharge to a Phase I or Fast Track to Phase II per the following guidelines: * Discharge Patient to appropriate Phase II area if PAR is 8 or greater or return to pre- procedure baseline. The post - procedure orders will be as directed. * If PAR score is less than 8 or not return to pre-procedure baseline then abi ravi will follow Phase I monitoring till PAR is reached for Phase II. The Phase I may be done in procedure room or may call to secure a Phase I area. * If naloxone or flumazenil are used for reversal, hold in Phase I for continued monitoring from when last reversal dose was given for a minimum of 60 minutes or longer pending the nurse and/or physician discretion of patient condition before discharge to Phase II. Please call the Sedation Physician to re-evaluate and complete post-note for discharge to Phase II area. Do NOT discharge from procedure sedation or Phase 1 until post- sedation evaluation note is complete by procedure /sedation MD Sedation Discharge Instructions to be given to the patient at discharge to home.
--- NOTE | 2023-04-29 17:00 | Cardiac Catheterization ---
[facility] Data: Marketing Systems Manager Cardiac Status Clinical evaluation leading to the procedure CAD Presenation: Stable angina Anginal Classification: CCS III Heart Failure: No Cardiogenic Shock within 24 Hours: No Cardiac Arrest within 24 Hours: No Imaging Studies Past 6 Months: Yes Stress Studies Past 6 Months: No Coronary Anatomy Dominant: Left Diagnostic Physicians Name: Cristiano Burnham MD Status: Elective Closure Device Percutaneous Entry Location: Radial Closure Device: Radial Band Recommendations: CABG Cardiac Cath Procedure Full Procedure Date April 29, 2023 Pre-Procedure Diagnosis Pre-Procedure Diagnosis: Angina AUC Score AUC Score: 7 Post-Procedure Diagnosis Post-Procedure Diagnosis: Severe CAD and Normal Intracardiac Pressures Procedure(s) Performed Procedure(s) Performed: Coronary Angiography and Left Heart Cath Social Human Services Assistants Cristiano Burnham MD Earth Boring Machine Operator(s) Deibler Estimated Blood Loss Estimated Blood Loss: < 20 ml Medication(s) Medication(s): Fentanyl, Heparin, Lidocaine 1%, Nicardipine and Versed Summary of Findings Procedures: 1. Coronary angiography 2. Left heart catheterization 3. Moderate sedation Indication: Mr. Jones is a pleasant 78-year-old gentleman with left bundle branch block,, type 2 diabetes, hypertension, dyslipidemia, prior tobacco abuse, stroke, and exertional angina with short walking distances. Coronary angiography: 1. Left main: No significant CAD. Calcifications noted. 2. Left anterior descending: Calcifications noted proximally to mid LAD. Proximal LAD 90% with diffuse CAD extending from late proximal to mid LAD of 70 to 95%. Large D1 originates from within the diseased LAD segment with ostial D1 70%. SHAYNA II flow noted within the distal LAD to apical LAD. 3. Circumflex: Dominant vessel. Mid circumflex 60%. Remainder of circumflex, PDA and PL without significant CAD. Small to medium caliber OM1. Very large caliber OM 2 mid 70%, involving a lateral branch. SHAYNA-3 flow. 4. Right coronary artery: RCA is small and nondominant. Early mid RCA 80 to 90%. Left heart catheterization: 1. Left ventriculography was not performed. 2. No aortic stenosis. Peak to peak gradient across the aortic valve was 0. 3. Normal LVEDP; 7 mmHg. Moderate sedation: 1. Sedation start time: 1528 2. Sedation end time: 1545 Impression: 1. Severe multivessel CAD including proximal to mid LAD with SHAYNA II flow, large D1, large OM2, nondominant RCA, with moderate to severe CAD involving dominant mid circumflex. 2. Normal left-sided filling pressure. 3. No aortic stenosis. Plan: 1. Images were reviewed with interventional cardiology. LAD CAD is complex and would be higher risk PCI. Recommended CT surgery evaluation to consider multivessel CABG. 2. Given that anginal symptoms are occurring with typical daily activities at h ome, recommend transfer to CT surgery capable center to consider CABG. 3. With SHAYNA II flow, recommend heparin drip if no contraindication. 4. Beta-edenilson, high intensity statin therapy, continue REGULO inhibitor. 5. Risk factor modification. Hemodynamics Rest Ao:: 102/62 Final Ao: 100/56 LV: 101/2/7 Recommendations Recommendations: CABG Specimens Specimens: None Radiation Exposure (mGy) 847 mGy. Fluoro time 3.5 min. Contrast (mls) 70 ml Procedural Complication(s) None Disposition PCU I attest to the content of the Intraoperative Record and any orders documented therein. Any exceptions are noted below. [facility] Card Cath Procedure Codes Cardiac Catheterization Procedure 1: Cardiovascular Cath Procedures: 36040 Coronaries and LHC (+/-LV) Moderate Sedation Procedure 1: Sedation/Anesthesia: 09142 Mod Sedation by the same physician;Init15 Min Child Age 5 & Up Procedure 2: Sedation/Anesthesia: 98051 Mod Sedation by the same physician; Ea [id number] Minutes PG Care Time/CCT Total # of Minutes Spent Total Time Spent with Patient: Total time spent is greater than 50% in coordination of care (as documented) at patient's floor/unit and/or counseling patient:
[2023-04-29] MEDS: SODIUM CHLORIDE 0.9% 1,000 ML IV SCH (17:08)
[2023-04-29] MEDS: Heparin IV Adult Wt-Based Standard *NO* INITIAL Bolus Protocol IV STA (17:24)
[2023-04-29] MEDS: HEPARIN SODIUM/DEXTROSE 25,000 UNITS/500 ML BAG IV SCH (17:33)
--- NOTE | 2023-04-29 19:16 | XCELERA ---
[id number]
[2023-04-29] MEDS: PANTOprazole 40 MG TAB PO SCH (21:01)
--- NOTE | 2023-04-29 22:36 | Electrocardiogram Report ---
Test Reason : Blood Pressure : / mmHG Vent. Rate : 075 BPM Atrial Rate : 075 BPM P-R Int : 148 ms QRS Dur : 158 ms QT Int : 396 ms P-R-T Axes : 000 -01 112 degrees QTc Int : 442 ms Poor data quality, interpretation may be adversely affected Normal sinus rhythm Left bundle branch block Abnormal ECG When compared with ECG of 07-MAY-2021 14:27, Fusion complexes are no longer Present Premature supraventricular complexes are no longer Present QRS duration has increased Confirmed by Cristiano Burnham ([id number]) on 04/29/2023 10:35:21 PM Referred By: Andrea Genao Confirmed By:Cristiano Burnham
--- NOTE | 2023-04-29 23:26 | Hospitalist Progress Note ---
Date of Service April 29, 2023 Assessment & Plan (1) Chest pain: Plan: Likely unstable angina Worsening SAXENA and sternal pain with exertion x 1 month Patient notes that he was out chopping wood with his chainsaw, and developed substernal chest pain that resolved when sitting down typical chest pain with multiple risk factors High risk Heart score of 7 Patient should forego stress test and get cath Consulted cardio who agrees with cardiac cath. Cardiac cath showed severe multi vessel disease Needs CABG [facility] will remain here overnight Placed on heparin drip CXR NAF TSH WNL Continue telemetry monitoring (2) Type 2 diabetes mellitus: Plan: Diet controlled; not currently on medications Last A1c at 6.9% on 02/17/2023 Glucose 154 on admission Hold insulin for now T2DM diet BSG ACHS Adjust regimen as needed (3) Hyperlipidemia: Plan: Continue rosuvastatin (4) Hypertension: Plan: Continue lisinopril-HCTZ (5) GERD (gastroesophageal reflux disease): Plan: Continue omeprazole or pantoprazole equivalent (6) History of CVA (cerebrovascular accident): Plan: In 1992, per patient Continue ASA Plan Disposition: Obs - Admit to [facility] Telemetry Full code AHA, T2DM Diet VTE PPx: TEDs (consider adding chemical DVT PPx for extended stay) Admission and Anticipated Discharge Date Admission Date: April 28, 2023 Subjective Patient reports no new symptoms. Currently chest pain free Review of Systems Review of Systems: All systems reviewed & are unremarkable except as noted in HPI & below Physical Exam Physical Exam: Gen.: No acute distress. Alert and oriented. HEENT: Anicteric sclera. Neck: No JVD. Cardiac: Regular. Normal S1-S2. No murmurs, rubs, or gallops. Pulmonary: CTA b/l Abdomen: Soft, nontender, nondistended, with normoactive bowel sounds. Extremities: No edema or cyanosis. Results & Data Results & Data Vital Signs (Past 12 Hours) Vital Signs Temp Pulse Pulse Resp BP BP Pulse Ox 04/29/23 23:07 36.7 C 66 18 124/70 96 04/29/23 21:37 04/29/23 21:30 04/29/23 20:37 04/29/23 19:37 04/29/23 19:25 36.6 C 70 18 117/71 96 04/29/23 17:37 82 125/83 94 04/29/23 17:07 82 108/69 94 04/29/23 16:48 36.5 C 70 18 126/67 18 L 04/29/23 16:15 71 16 123/84 93 04/29/23 13:05 87 16 132/81 96 04/29/23 11:30 36.4 C L 16 119/70 96 O2 Del Method 04/29/23 23:07 Room Air 04/29/23 21:37 Room Air 04/29/23 21:30 Room Air 04/29/23 20:37 Room Air 04/29/23 19:37 Room Air 04/29/23 19:25 Room Air 04/29/23 17:37 Room Air 04/29/23 17:07 Room Air 04/29/23 16:48 Room Air 04/29/23 16:15 Room Air 04/29/23 13:05 Room Air 04/29/23 11:30 Room Air PG Care Time/CCT Total # of Minutes Spent Total Time Spent with Patient: Total time spent is greater than 50% in coordination of care (as documented) at patient's floor/unit and/or counseling patient: Coding Level of Care Code 08942 SUB INP/OBS CARE 3/50MIN Diagnoses Chest pain R07.9 Type 2 diabetes mellitus E11.9 Hyperlipidemia E78.5 Hypertension I10 GERD (gastroesophageal reflux disease) K21.9 History of CVA (cerebrovascular accident) Z86.73
[2023-04-30 01:24] LABS: Partial Thromboplastin Ratio 1.8; Partial Thromboplastin Time 52 Seconds (21-31)
[2023-04-30 02:03] LABS: ANTI-Xa, LMWH(Low Molecular Wt 0.53 IU/ML (< 0.10)
--- NOTE | 2023-04-30 05:55 | Electrocardiogram Report ---
Test Reason : Blood Pressure : / mmHG Vent. Rate : 074 BPM Atrial Rate : 074 BPM P-R Int : 206 ms QRS Dur : 164 ms QT Int : 416 ms P-R-T Axes : 068 034 100 degrees QTc Int : 461 ms Normal sinus rhythm Left bundle branch block Abnormal ECG When compared with ECG of 28-APR-2023 17:11, No significant change was found Confirmed by Cristiano Burnham ([id number]) on 04/30/2023 5:54:42 AM Referred By: Andrea Genao Confirmed By:Cristiano Burnham
[2023-04-30 07:00] LABS: Mean Corpuscular Hemoglobin 29.8 pg (25.0-34.0); Mean Corpuscular Hgb Conc 34.9 g/dL (32.0-36.0); Mean Corpuscular Volume 85.5 fL (80.0-100.0); Mean Platelet Volume 9.8 fL (9.4-12.4); Platelet Count 183 K/uL (130-400); RDW Coefficient of Variation 12.9 % (11.5-14.5); RDW Standard Deviation 39.8 fL (36.4-46.3); Red Blood Count 5.03 M/uL (4.70-6.10); White Blood Count 6.75 K/ul (4.8-10.8)
[2023-04-30 07:27] LABS: BUN Creatinine Ratio 23.3 (10-20); Calcium 9.1 mg/dl (8.6-10.3); Creatinine Clr Calc Pharmacy 99.1 ml/min; Est GFR (African American) 103.7 ml/min; Est GFR (Non-African American) 89.5 ml/min; Potassium 3.8 mmol/L (3.5-5.1)
--- NOTE | 2023-04-30 07:37 | Discharge Summary ---
Date of Service April 30, 2023 Admission HPI Per Admitting Provider Kenneth is a pleasant 78-year-old male with PMH of T2DM, HTN, HLD, CVA, GERD, and diverticulosis. He presented for chest pain and SAXENA that has been worsening over the past month. Patient notes that he gets significantly winded when he goes out to chop wood with his chainsaw, but this resolves after sitting for a while. He endorses no CP at time of admission. When the pain comes on, it is located substernally; no radiation. Patient has not been taking anything for the pain, but notes he take ibuprofen on occassion for body aches. He took all of his regular morning medications; no recent change in medications. He does not take any medications for diabetes; reports he ahs been borderline and managing it with diet. He denies smoking / tobacco use; endorses occassional, social alcohol use. Hx of a stroke in 1995. No PMHx of MIs. Patient's also notes he may have had pericarditis in the past, but they are not sure. Patient does not use supplemental oxygen therapy at home. He notes he had COVID in March. 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 Vitals stable at time of admission. ED course: NSS 500 mL IV ROS: Patient endorses substernal chest pain with exertion, SAXENA, and neuropathy in feet (chronic). Patient denies fever, chills, nightsweats, dizziness, lightheadedness, JAMISON, L arm pain, L jaw pain/pressure, SOB at rest, back pain, pain between shoulder blades, abdominal pain, N/V/D, dysuria, burning with urination, and numbness/tingling/pain/redness in the arms or legs. Principal Diagnosis unstable angina complex multivessel CAD confirmed on [facility] LBBB h/o Chronic interstitial lung disease Discharge Exam pt is stable for transfer. cardiac is regular lungs are clear Discharge Data Allergies Allergy/AdvReac Type Severity Reaction Status Date / Time pravastatin Allergy Intermediate Itching Verified 04/28/23 21:42 simvastatin Allergy Intermediate Itching Verified 04/28/23 21:42 Sulfa (Sulfonamide Allergy Intermediate MAKES EYES Verified 04/28/23 20:22 Antibiotics) ITCHY Consultations 04/29/23 10:09 Consult Cardiology Routine Procedures Performed Operation Date: 04/29/23 12:45 Actual Procedures p Cineradiography w/Routine Exam - Cristiano Burnham MD p Cath, Left with Cors and Vent - Cristiano Burnham MD Ordered Studies 04/28/23 18:09 CT angio chest PE protocol Stat 04/29/23 15:13 CL Cath Imgs for PACS use only Stat Hospital Course (1) Chest pain: Worsening SAXENA and sternal pain with exertion x 1 month Patient notes that he was out chopping wood with his chainsaw, and developed substernal chest pain that resolved when sitting down Per patient, the chest pain has been exertional / predictable; stable angina Troponin WNL x2 EKG revealed NSR at 75 bpm; QTc 442; LBBB noted with some morphology change, however does not meet Sgarbossa's criteria for discordant ST elevation >5mm Review of prior EKG in April 2021 showed a nonspecific intraventricular conduction block with widened QRS; LBBB present at this time Chest CTA revealed no PE or aortic dissection; chronic interstitial lung disease and fibrosis [facility] confirms multivessel CAD including LAD with complex lesion proximal and involving D1 transfer to [facility] Dr Fonseca family aware via phone (2) Type 2 diabetes mellitus: Diet controlled; not currently on medications Last A1c at 6.9% on 02/17/2023 Glucose 154 on admission (3) Hyperlipidemia: Continue rosuvastatin as high dose statin to reduce cardiovascular risk (4) Hypertension: Continue lisinopril-HCTZ (5) GERD (gastroesophageal reflux disease): Continue omeprazole or pantoprazole equivalent (6) History of CVA (cerebrovascular accident): In 1992, per patient Continue ASA Plan given need for re-vascularization evaluation are coordinating transfer to Tertiary care center , [facility] accepted pt Full code Total Time Total Time Spent Total Time Spent (In Minutes): It required greater than 30 minutes to prepare this patient for discharge. Discharge Plan Discharge Items Patient Disposition: Transfer [facility] Reason For Visit: CHEST PAIN, SAXENA Discharge Diagnosis: unstable angina complex multivessel CAD confirmed on [facility] LBBB h/o Chronic interstitial lung disease Activity: Per Instructions section Activity Comment: per discharging facility Non-emergency contact: Primary Care Provider and [place] Call non-emergency contact if: your symptoms worsen Follow-up/Referrals: Andrea Genao, CARE DIRECTOR-C [Primary Care Provider] - Diet: Heart Healthy Addtl Attending Provider Instructions: please follow discharge and follow up instructions from your tertiary center Addtl Vice President Research Provider Instructions: will have heparin drip when transfer Pending Studies at Discharge: No Stand-Alone Forms: My [facility] [employer] Skilled Items Patient informed of condition?: Yes DNR: No Discharge Level of Care: Other Communicable Disease: No Discharge Prognosis: Stable Lines: Peripheral IV Urinary Catheter: No Medications and DC Order Prescriptions: New aspirin 81 mg Tablet,Delayed Release (Dr/Ec) 81 mg PO QAM Qty: 30 0RF Continued multivitamin [One Daily Multivitamin] tablet 1 tab PO DAILY ascorbic acid (vitamin C) 500 mg capsule 500 mg PO DAILY omeprazole 20 mg capsule,delayed release(DR/EC) 20 mg PO HS lisinopril-hydrochlorothiazide 20-25 mg tablet 0 tab PO QAM Rx Instructions: Pt unsure if this is his blood pressure medication, but states he does take a blood pressure medication. Pharmacy is currently closed.: Original Directions: 1 tab by mouth daily rosuvastatin 20 mg tablet 0 mg PO DAILY Rx Instructions: Pt unsure if this is his cholesterol medication, but states he does take a cholesterol medication. Pharmacy is currently closed.: Original Directions: 20mg by mouth daily Discontinued aspirin 325 mg tablet 325 mg PO DAILY loratadine [Claritin] 10 mg Tablet 10 mg PO DAILY No Action (DME) lancets [OneTouch UltraSoft Lancets] misc See Dose Instructions .ROUTE .MEDSUPPLY Qty: 50 Rx Instructions: As directed (DME) OneTouch Verio test strips strip See Dose Instructions .ROUTE .MEDSUPPLY Qty: 10 Rx Instructions: As directed Discharge Orders: Discharge Order (Routine); Ordered 04/30/23 Ordered By: Ric España Admission Data Admit Date/Time: 04/29/23 23:23 Attending Provider: Ric España Admit Provider: Indira Parada Primary Care Provider: Andrea Genao Other Providers: [facility]; Cristiano Burnham Other Interventions: Discharge Summary Assessment (RN) Last Done: 04/30/23 14:07 Coding Level of Care Code 94925 INP/OBS DISCH >30 MIN Diagnoses Chest pain R07.9 Type 2 diabetes mellitus E11.9 Hyperlipidemia E78.5 Hypertension I10 GERD (gastroesophageal reflux disease) K21.9 History of CVA (cerebrovascular accident) Z86.73
[2023-04-30 08:03] LABS: ANTI-Xa, LMWH(Low Molecular Wt 0.66 IU/ML (< 0.10)
[2023-04-30] MEDS: ASPIRIN 81 MG ECTAB PO SCH (08:50)
--- NOTE | 2023-04-30 10:59 | Cardiology Progress Note ---
Date of Service April 30, 2023 Assessment & Plan (1) CAD (coronary artery disease): (2) Exertional angina: (3) Hypertension: (4) Hyperlipidemia: (5) Dyspnea on exertion: (6) LBBB (left bundle branch block): Plan ASSESSMENT/PLAN: 1. Multivessel CAD: No angina while here but was having daily angina per his with minimal distances. Continue heparin drip given SHAYNA II flow in the LAD. Continue aspirin 81 mg daily. Recommend metoprolol if tolerated. Continue REGULO inhibitor and high intensity statin therapy. Pending transfer to [facility] surgery capable center for consideration of CABG. 2. Left bundle branch block: Plan as above. 3. Dyspnea on exertion: Cardiac evaluation as above. Also has findings on CT scan concerning for interstitial lung disease or pulmonary fibrosis per radiology. As per primary hospitalist service or potentially pulmonology at some point. He appears euvolemic. Normal LVEDP. 4. Hypertension: Blood pressure is well-controlled. Continue current regimen. Consider beta-edenilson. 5. Dyslipidemia: Continue high intensity statin therapy. Most recent LDL was less than 70. 6. Disposition: Transfer to [facility] surgery capable center. He has been accepted to the [facility] in [place] per report. He is awaiting transfer. Admission and Anticipated Discharge Date Admission Date: April 29, 2023 Subjective Patient seen this morning. He denies chest pain, shortness of breath, syncope, near syncope, palpitations, edema, or bleeding. He has not had any significant issue with his right radial cath site. He is pending discharge to [facility] in [place] to be evaluated by CT surgery. He was alone in his hospital room. Physical Exam Physical Exam: Gen.: No acute distress. Alert and oriented. HEENT: Anicteric sclera. Neck: No JVD. Cardiac: No ventricular heave. Regular. Normal S1-S2. No murmurs, rubs, or g allops. Pulmonary: Clear to auscultation bilaterally without wheezes, rales, or rhonchi. Abdomen: Soft, nontender, nondistended, with normoactive bowel sounds. No bruits noted. Extremities: 2+ radial pulses bilaterally. Right radial cath site is clean, dry and intact without erythema or discharge. 2+ posterior tibialis pulses bilaterally. No edema or cyanosis. Psychiatric: Affect appears appropriate. Results & Data Vital Signs (Past 12 Hours) Vital Signs Temp Pulse Pulse Resp BP Pulse Ox O2 Del Method 04/30/23 07:52 37.2 C 80 18 136/65 94 Room Air 04/30/23 02:59 37 C 64 18 115/62 93 Room Air 04/29/23 23:08 04/29/23 23:07 36.7 C 66 18 124/70 96 Room Air O2 Del Method 04/30/23 07:52 04/30/23 02:59 04/29/23 23:08 Room Air 04/29/23 23:07 Laboratory Results Laboratory Results - last 24 hr 04/29/23 04/29/23 04/29/23 12:13 16:52 20:12 WBC RBC Hgb Hct MCV MCH MCHC RDW Std Deviation RDW Coeff of Alexei Plt Count MPV APTT PTT Ratio Heparin Anti-Xa, LM Wt Sodium Potassium Chloride Carbon Dioxide Anion Gap BUN Creatinine Est Cr Clr Drug Dosing Est GFR ( Amer) Est GFR (Non-Af Amer) BUN/Creatinine Ratio Glucose POC Glucose 147 H 102 H 117 H Calcium Troponin I High Sens 04/30/23 04/30/23 04/30/23 00:17 06:25 07:33 WBC 6.75 RBC 5.03 Hgb 15.0 Hct 43.0 MCV 85.5 MCH 29.8 MCHC 34.9 RDW Std Deviation 39.8 RDW Coeff of Alexei 12.9 Plt Count 183 MPV 9.8 APTT 52 H PTT Ratio 1.8 Heparin Anti-Xa, LM Wt 0.53 0.66 Sodium 135 L Potassium 3.8 Chloride 102 Carbon Dioxide 26 Anion Gap 7 BUN 17 Creatinine 0.73 Est Cr Clr Drug Dosing 99.1 Est GFR ( Amer) 103.7 Est GFR (Non-Af Amer) 89.5 BUN/Creatinine Ratio 23.3 H Glucose 122 H POC Glucose 131 H Calcium 9.1 Troponin I High Sens 9.8 Diagnostic Findings Telemetry personally reviewed: Sinus. No arrhythmia. Labs reviewed and notable for stable renal function, normal blood counts. Cardiac cath 04/29/2023: Coronary angiography: 1. Left main: No significant CAD. Calcifications noted. 2. Left anterior descending: Calcifications noted proximally to mid LAD. Proximal LAD 90% with diffuse CAD extending from late proximal to mid LAD of 70 to 95%. Large D1 originates from within the diseased LAD segment with ostial D1 70%. SHAYNA II flow noted within the distal LAD to apical LAD. 3. Circumflex: Dominant vessel. Mid circumflex 60%. Remainder of circumflex, PDA and PL without significant CAD. Small to medium caliber OM1. Very large caliber OM 2 mid 70%, involving a lateral branch. SHAYNA-3 flow. 4. Right coronary artery: RCA is small and nondominant. Early mid RCA 80 to 90%. Left heart catheterization: 1. Left ventriculography was not performed. 2. No aortic stenosis. Peak to peak gradient across the aortic valve was 0. 3. Normal LVEDP; 7 mmHg. Medications Administered Current Inpatient Medications Acetaminophen (Acetaminophen 325 Mg Tab) 650 mg PO Q4H PRN PRN Reason: Pain or Fever Stop: 05/28/23 23:07 Aspirin (Aspirin 81 Mg Ectab) 81 mg PO [facility] Stop: 05/30/23 08:59 Last Admin: 04/30/23 08:50 Dose: 81 mg Dextrose (Dextrose 50% 50 Ml Syringe) 25 - 50 ml IV UD PRN; Protocol PRN Reason: Hypoglycemia Protocol Stop: 05/28/23 23:07 Glucagon (Glucagon For Inj 1 Mg Vial) 1 mg SQ UD PRN; Protocol PRN Reason: Hypoglycemia Protocol Stop: 05/28/23 23:07 Glucose (Glucose 10 Tab/Tube) 4 - 8 tab PO UD PRN; Protocol PRN Reason: Hypoglycemia Treatment Stop: 05/28/23 23:07 Glucose (Glucose 40% Gel 15 Gm Tube) 15 - 30 gm PO UD PRN; Protocol PRN Reason: Hypoglycemia Protocol Stop: 05/28/23 23:07 Lisinopril/HCTZ (Lisinopril/Hctz 20/25mg 1 Tab) 1 tab PO [facility] Stop: 05/29/23 08:59 Last Admin: 04/30/23 08:50 Dose: 1 tab Heparin Sodium/Dextrose (Heparin Sodium/Dextrose) 25,000 units in 500 mls @ 30 mls/hr IV .[id number] [facility]; Protocol Stop: 05/29/23 17:14 Last Admin: 04/30/23 09:55 Dose: 1,500 units/hr, 30 mls/hr Miscellaneous (Carbohydrates For Hypoglycemia ) 15 - 30 gm PO UD PRN PRN Reason: Hypoglycemia Protocol Stop: 05/28/23 23:07 Ondansetron HCl (Ondansetron Inj 2 Mg/Ml 2 Ml Vial) 4 mg IV Q6H PRN PRN Reason: Nausea Stop: 05/28/23 23:07 Pantoprazole Sodium (Pantoprazole 40 Mg Tab) 40 mg PO HS IMELDA Stop: 05/29/23 20:59 Last Admin: 04/29/23 21:01 Dose: 40 mg Rosuvastatin Calcium (Rosuvastatin Calcium 20 Mg Tab) 20 mg PO DAILY IMELDA Stop: 05/29/23 08:59 Last Admin: 04/30/23 08:50 Dose: 20 mg PG Care Time/CCT Total # of Minutes Spent Total Time Spent with Patient: Total time spent is greater than 50% in coordination of care (as documented) at patient's floor/unit and/or counseling patient: Coding Level of Care Code 74029 SUB INP/OBS CARE 3/50MIN Diagnoses CAD (coronary artery disease) I25.10 Exertional angina I20.89 Hypertension I10 Hyperlipidemia E78.5 Dyspnea on exertion R06.09 LBBB (left bundle branch block) I44.7
== END 2023-04-30 14:32 | DRG 287 ==
LOC: 2N 16:49 → ED 16:49 → SUATTDRO 22:11 → 2N 22:38 → 2E 04-29 16:42

== ENCOUNTER 2025-02-21 05:28 | Observation (INO) ==
--- NOTE | 2025-01-19 14:30 | PAT Medication Instructions ---
Medication Instructions Date of Service January 19, 2025 Home Medications Medication Instructions Recorded aspirin 81 mg tablet,delayed 81 mg PO QAM #30 tabs 04/30/23 release multivitamin (One Daily Multivitamin tablet) 1 tab PO DAILY aspirin 81 mg tablet,delayed release 81 mg PO QAM apixaban 5 mg tablet 5 mg PO BID dofetilide 500 mcg capsule 500 mcg PO BID lisinopril 10 mg tablet 10 mg PO QAM rosuvastatin 40 mg tablet 40 mg PO HS empagliflozin 25 mg tablet 12.5 mg PO QAM acetaminophen 325 mg tablet (Tylenol) 650 mg PO DAILY cholecalciferol (vitamin D3) 25 mcg (1,000 unit) tablet 25 mcg PO DAILY magnesium oxide 420 mg tablet 420 mg PO DAILY metoprolol succinate 50 mg tablet,extended release 24 hr 50 mg PO QAM omeprazole 20 mg tablet,delayed release 20 mg PO DAILY PRN gerd ASK your prescriber and surgeon aspirin 81 mg tablet,delayed release 81 mg PO QAM apixaban/Eliquis 5 mg tablet 5 mg PO BID (From anesthesia perspective, Apixaban/Eliquis is requested to be stopped 72 hours/3 days before surgery. Please check if okay with doctor that prescribes this to you) DO NOT take the morning of surgery multivitamin (One Daily Multivitamin tablet) 1 tab PO DAILY lisinopril 10 mg tablet 10 mg PO QAM cholecalciferol (vitamin D3) 25 mcg (1,000 unit) tablet 25 mcg PO DAILY magnesium oxide 420 mg tablet 420 mg PO DAILY Take morning of surgery With a small sip of water, OTHERWISE NOTHING TO EAT OR DRINK AFTER MIDNIGHT: dofetilide 500 mcg capsule 500 mcg PO BID acetaminophen 325 mg tablet (Tylenol) 650 mg PO DAILY metoprolol succinate 50 mg tablet,extended release 24 hr 50 mg PO QAM omeprazole 20 mg tablet,delayed release 20 mg PO DAILY PRN gerd (if needed) Take evening before surgery dofetilide 500 mcg capsule 500 mcg PO BID rosuvastatin 40 mg tablet 40 mg PO HS omeprazole 20 mg tablet,delayed release 20 mg PO DAILY PRN gerd (if needed) STOP taking 3 days before surgery empagliflozin 25 mg tablet 12.5 mg PO QAM Other Notes If you have any questions please call us at [phone] or [phone] or [phone] or [phone]
--- NOTE | 2025-01-30 10:24 | Anesthesiology Consultation ---
Date of Service January 30, 2025 Assessment & Plan (1) Encounter for pre-operative examination: Chart Review Chart Review: Acceptable Risk for Surgery and Patient seen in Pre Admission Testing - Check BSG AM DOS - Eliquis instructions per surgeon/prescriber discretion (patient was educated that needs to be off Eliquis 72 hours/3 days in order to get SAB) - Patient is NOT an ideal OPJ candidate (currently 23 hour obs) Per PAT appt on 01/30/25, no recent illness/disease exposures, illness related symptoms, or recent illness/disease positive tests. Will leave to surgeon's discretion if preop Covid testing needed Cardiology office visit 11/15/24= "... here for treatment and evaluation of HFmrEF GDMT management, atrial fibrillation... feeling well today, denies any cardiac complications... CAD... monitor BP/HR/weight daily... reviewed all cardiac medications... continue... " Left inguinal hernia 05/23/21= Done under GA with Grade 1 view (cords clear) with MAC #3. ETT #7.5. Atraumatic DL x 1. Teaching & Discussion Pre-Anesthesia Teaching/Discussion Notes: Instructed NPO after midnight before surgery,except medications with 15 cc of water. Medication instructions provided according to the PAT guidelines. History Surgery Operation Date: 02/21/25 10:40 Proposed Procedures p Left Unicompartmental Knee versus - Niall Parada MD s Left Total Knee Arthroplasty - Niall Parada MD Height/Weight Height: 5 ft 10 in Weight: 89.5 kg Allergies Allergy/AdvReac Type Severity Reaction Status Date / Time pravastatin Allergy Intermediate Itching Verified 01/19/25 13:11 simvastatin Allergy Intermediate Itching Verified 01/19/25 13:11 Sulfa (Sulfonamide Allergy Intermediate MAKES EYES Verified 01/19/25 13:11 Antibiotics) ITCHY Medications Home Medications Medication Instructions Recorded Confirmed Last Taken blood sugar diagnostic (OneTouch #10 ea 10/19/18 01/16/25 Unknown Verio test strips) lancets (OneTouch UltraSoft #50 ea 10/19/18 01/16/25 Unknown Lancets) multivitamin (One Daily 1 tab PO DAILY 10/19/18 01/19/25 05/22/21 06:00 Multivitamin tablet) aspirin 81 mg tablet,delayed 81 mg PO QAM #30 tabs 02/15/24 11/06/25 Unknown release apixaban 5 mg tablet 5 mg PO BID 12/25/23 01/19/25 Unknown dofetilide 500 mcg capsule 500 mcg PO BID 12/25/23 01/19/25 Unknown lisinopril 10 mg tablet 10 mg PO QAM 12/25/23 01/19/25 Unknown rosuvastatin 40 mg tablet 40 mg PO HS 12/25/23 01/19/25 Unknown empagliflozin 25 mg tablet 12.5 mg PO QAM 12/27/24 01/19/25 Unknown acetaminophen 325 mg tablet 650 mg PO DAILY 01/19/25 01/19/25 Unknown (Tylenol) cholecalciferol (vitamin D3) 25 25 mcg PO DAILY 01/19/25 01/19/25 Unknown mcg (1,000 unit) tablet magnesium oxide 420 mg tablet 420 mg PO DAILY 01/19/25 01/19/25 Unknown omeprazole 20 mg tablet,delayed 20 mg PO DAILY PRN gerd 01/19/25 01/19/25 Unknown release metoprolol succinate 25 mg 25 mg PO QAM 01/30/25 01/30/25 Unknown tablet,extended release 24 hr Past Medical History Medical History (Updated 01/30/25 @ 10:21 by Tereza Grubbs PA-C) Atrial fibrillation cardioversion-->04/2023-- unsuccessful- now controlled by antiarrythmic med- follows with [facility] cardio on Eliquis CAD (coronary artery disease) s/p CABG x 3- 04/2023 Diverticulosis GERD (gastroesophageal reflux disease) well controlled and stable- takes Tums/Omeprazole PRN (diet dependent) History of CVA (cerebrovascular accident) (1995) has difficulty swallowing- does not drink thickened liquids Hyperlipidemia Hypertension Left bundle branch block (LBBB) Osteoarthritis of left knee Type 2 diabetes mellitus Varicose veins of legs more in left leg Exercise / Class Metabolic Activity II 4-5 Yardwork/Stairs/Walk up hill (one flight of stairs - no chest pain or SOB ) Past Family History Family History Father Diabetes Coronary heart disease Brother Diabetes Mother Stroke Other No family history of adverse response to anesthesia Denies family history of Colon cancer Ovarian cancer Prostate cancer Myocardial infarction Breast cancer Past Surgical History Surgical History History of appendectomy (1959) History of cardioversion (04/2023) [facility], after cabg History of colonoscopy History of esophagogastroduodenoscopy (EGD) History of tonsillectomy History of tooth extraction Hx of cardiac catheterization (04/29/23) [facility]--[place]-- had CABG x3 S/P CABG x 3 (04/2023) [facility]-follows with cardio at [facility] S/P left inguinal hernia repair (05/23/21) Open Left Inguinal Hernia Repair with Mesh(Left) - Chris Guerrero MD, FACS 05/23/2021 Past Anesthesia History No Hx of Anesthesia Complications and No Family Hx of Anesthesia Complications History of PONV No Hx of PONV and No Hx of Motion Sickness Social History Smoking Status: Former smoker tobacco type: cigarettes Smoking cigarettes per day: 20 Do You Dip or Chew Tobacco: No Smoking End Date: Hx Alcohol Use: Yes Alcohol type: beer alcohol intake frequency: a few times a month Hx Substance Use: No substance use type: does not use Review of Systems Patient denies chest pain, shortness of breath, dyspnea on exertion, cough, wheezing, palpitations. No hx of seizures, apnea/snoring. No hx of blood clots or blood transfusions Physical Exam Vital Signs VITALS BP 107/65 P 70 TEMP 97.5 SP02 95% on RA RESP 16 Constitutional no acute distress ENMT Mouth: no TMJ clicking Thyromental Distance: > or= 3.5 Finger Breadths (4.0) Mallampati Class: I Neck + limited neck extension (mild) Respiratory normal respiratory effort; no respiratory distress Auscultation: lungs clear to auscultation bilaterally; no wheezes Cardiovascular Rate/Rhythm: regular rate and regular rhythm Heart Sounds: no murmur Vessels: no carotid bruit Musculoskeletal Spine: no pain with cervical ROM Extremities: extremities normal to inspection Psychiatric Orientation: alert Lab Results Anesthesia Preop Results Results Anesthesia Widget: WBC 7.39 K/ul (4.8-10.8) 01/30/25 Hgb 16.8 g/dL (14.0-18.0) 01/30/25 Hct 50.4 % (42.0-52.0) 01/30/25 Plt 215 K/uL (130-400) 01/30/25 Na 138 mmol/L (136-145) 01/30/25 K 4.7 mmol/L (3.5-5.1) 01/30/25 Cl 101 mmol/L (98-107) 01/30/25 CO2 30 mmol/L (21-32) 01/30/25 BUN 17 mg/dl (6-23) 01/30/25 Creat 0.74 mg/dl (0.6-1.4) 01/30/25 Glucose Level 160 mg/dl (70-99(Fasting)) H 01/30/25 PT 11.4 Seconds (9.0-12.0) 01/30/25 PTT 30 Seconds (21-31) 01/30/25 INR 1.1 (0.9-1.1) 01/30/25 HA1c 6.2 % (4.5-5.6) H 01/30/25 Blood Type AB Positive 01/30/25 Antibody Screen NEGATIVE 01/30/25 Testing Electrocardiogram Date: 01/30/25 SR with fusion complexes at 62bpm LBBB When compared to EKG from Apr 29, 2023- fusion complexes are now present (Discussed with Dr. Myers- LBBB is not new- ECHO done 05/2024 showed no acute issues; patient with good functional status and no current cardiopulmonary symptoms- he can proceed as scheduled without additional follow up/work up) Chest X-Ray Date: 01/30/25 Findings: + NAD FINDINGS: There is interval CABG. There is mild cardiomegaly without pulmonary vascular congestion. Stable mild scarring in the lung bases. No new consolidation or pleural effusion. No pneumothorax Echocardiogram Date: 05/25/24 EF: 50-55% LV Function: normal (Low normal) RWMA: + none Other Findings: + LVH (moderate/concentric) Septal motion consistent with bundle branch block Mild left atrial dilation Sclerotic AV without significant stenosis. Trace AR Mild MR Normal estimated RVSP No significant change from prior study on 11/18/2023 Cardiac Catheterization Date: 04/29/23 Coronary angiography: 1. Left main: No significant CAD. Calcifications noted. 2. Left anterior descending: Calcifications noted proximally to mid LAD. Proximal LAD 90% with diffuse CAD extending from late proximal to mid LAD of 70 to 95%. Large D1 originates from within the diseased LAD segment with ostial D1 70%. SHAYNA II flow noted within the distal LAD to apical LAD. 3. Circumflex: Dominant vessel. Mid circumflex 60%. Remainder of circumflex, PDA and PL without significant CAD. Small to medium caliber OM1. Very large caliber OM 2 mid 70%, involving a lateral branch. SHAYNA-3 flow. 4. Right coronary artery: RCA is small and nondominant. Early mid RCA 80 to 90%. Impression: 1. Severe multivessel CAD including proximal to mid LAD with SHAYNA II flow, large D1, large OM2, nondominant RCA, with moderate to severe CAD involving dominant mid circumflex. 2. Normal left-sided filling pressure. 3. No aortic stenosis. Plan: 1. Images were reviewed with interventional cardiology. LAD CAD is complex and would be higher risk PCI. Recommended CT surgery evaluation to consider multivessel CABG. 2. Given that anginal symptoms are occurring with typical daily activities at home, recommend transfer to CT surgery capable center to consider CABG. 3. With SHAYNA II flow, recommend heparin drip if no contraindication. 4. Beta-edenilson, high intensity statin therapy, continue REGULO inhibitor. 5. Risk factor modification. (Patient had subsequent 3 vessel CABG 04/2023)
--- NOTE | 2025-02-13 07:40 | History & Physical Report ---
Date of Service February 13, 2025 Assessment & Plan (1) Osteoarthritis of left knee: 79-year-old gentleman with multiple medical problems including atrial fibrillation, history of heart disease status post CABG with medial knee pain consistent with moderate to advanced knee arthritis. His knee is clearly limit ing his activities. He has failed conservative treatment. Pain is mostly all medial and he like to have his knee fixed. Plan: We discussed treatment options with the patient once again. His knee is beyond the point where knee arthroscopy is going to help. Symptoms all localized to the medial side of the knee and we can proceed with a partial knee replacement. The risks met this procedure explained. Informed consent was obtained. He will hold his Eliquis 3 days preop. Will start him back on this 24 hours postop at a prophylactic dose. He is planning be discharged to home with his 's assistance. (2) Atrial fibrillation: (3) CAD (coronary artery disease): (4) Type 2 diabetes mellitus: (5) Hyperlipidemia: (6) Hypertension: History of Present Illness Chief Complaint: . Left medial knee pain and discomfort. Primary Care Provider: Andrea Genao NP-C . The patient is a 79-year-old gentleman referred by Dr. Escobar for treatment of his left knee. This all started about 8 months ago. No particular injury. He saw Dr. Pryor had a shot in his knee which did not help much at all. Pain is mostly all medial. It is limiting his ability to get around and do things that he wants to do. Got some mild swelling. He had does have a history of atrial fibrillation on Eliquis. He would like to have his knee fixed. Allergies Allergy/AdvReac Type Severity Reaction Status Date / Time pravastatin Allergy Intermediate Itching Verified 01/19/25 13:11 simvastatin Allergy Intermediate Itching Verified 01/19/25 13:11 Sulfa (Sulfonamide Allergy Intermediate MAKES EYES Verified 01/19/25 13:11 Antibiotics) ITCHY Home Medications Medication Instructions Recorded Confirmed Type blood sugar diagnostic (OneTouch #10 ea 10/19/18 01/16/25 History Verio test strips) lancets (OneTouch UltraSoft #50 ea 10/19/18 01/16/25 History Lancets) multivitamin (One Daily 1 tab PO DAILY 10/19/18 01/19/25 History Multivitamin tablet) aspirin 81 mg tablet,delayed 81 mg PO QAM #30 tabs 04/30/23 01/19/25 Rx release apixaban 5 mg tablet 5 mg PO BID 12/25/23 01/19/25 History dofetilide 500 mcg capsule 500 mcg PO BID 12/25/23 01/19/25 History lisinopril 10 mg tablet 10 mg PO QAM 12/25/23 01/19/25 History rosuvastatin 40 mg tablet 40 mg PO HS 12/25/23 01/19/25 History empagliflozin 25 mg tablet 12.5 mg PO QAM 12/27/24 01/19/25 History acetaminophen 325 mg tablet 650 mg PO DAILY 01/19/25 01/19/25 History (Tylenol) cholecalciferol (vitamin D3) 25 25 mcg PO DAILY 01/19/25 01/19/25 History mcg (1,000 unit) tablet magnesium oxide 420 mg tablet 420 mg PO DAILY 01/19/25 01/19/25 History omeprazole 20 mg tablet,delayed 20 mg PO DAILY PRN gerd 01/19/25 01/19/25 History release metoprolol succinate 25 mg 25 mg PO QAM 01/30/25 01/30/25 History tablet,extended release 24 hr Past Med/Surg History Problem List Encounter for pre-operative examination Wears hearing aid in both ears Osteoarthritis of left knee Atrial fibrillation (Chronic) CAD (coronary artery disease) (Chronic) s/p CABG x 3 LBBB (left bundle branch block) (Chronic) Type 2 diabetes mellitus (Chronic) diet control Hyperlipidemia (Chronic) Hypertension (Chronic) Diverticulosis (Chronic) Medical History GERD (gastroesophageal reflux disease) well controlled and stable- takes Tums/Omeprazole PRN (diet dependent) Left bundle branch block (LBBB) CAD (coronary artery disease) s/p CABG x 3- 04/2023 Varicose veins of legs more in left leg Diverticulosis Osteoarthritis of left knee Atrial fibrillation cardioversion-->04/2023-- unsuccessful- now controlled by antiarrythmic med- follows with [facility] cardio on Eliquis Type 2 diabetes mellitus Hyperlipidemia Hypertension History of CVA (cerebrovascular accident) (1995) has difficulty swallowing- does not drink thickened liquids Surgical History History of cardioversion (04/2023) [facility], after cabg Hx of cardiac catheterization (04/29/23) [facility]-- had CABG x3 S/P CABG x 3 (04/2023) [facility]-follows with cardio at [facility] S/P left inguinal hernia repair (05/23/21) Open Left Inguinal Hernia Repair with Mesh(Left) - Chris Guerrero MD, FACS 05/23/2021 History of esophagogastroduodenoscopy (EGD) History of colonoscopy History of tooth extraction History of tonsillectomy History of appendectomy (1959) Family History Father Diabetes Coronary heart disease Brother Diabetes Mother Stroke Other No family history of adverse response to anesthesia Denies family history of Colon cancer Ovarian cancer Prostate cancer Myocardial infarction Breast cancer Social History Smoking Status: Former smoker Tobacco Type: Cigarettes Age Started Using Tobacco: 11; Age Quit Using Tobacco: 51; packs per day: 1; Cigarettes Per Day: 20; Second Hand Exposure: No; Do You Dip or Chew Tobacco: No; Hx Alcohol Use: Yes Alcohol type: beer Alcohol Intake Frequency: 2-4 x/Month Hx Substance Use: No Preferred Language: Frisian Communication Ability: Effective Visual Impairment: No Limitations Hearing Ability: Use of Hearing Aid Technical Support Associate Required: No Beliefs That Will Affect Care: None marital status: Current Living Situation: Spouse current occupational status: retired current occupation: Supply distribution How many Children do You have: 3 Feels Safe at Home: Yes Childhood Exposure to Second-Hand Smoke: No Diet: regular caffeine: Yes during the past year weight has: remained stable Dental Care, Regularly: Yes Physical Activity Frequency: Daily Seatbelt Use: always Sunscreen Use: No Assistive Devices: Glasses and Hearing Aid - Bilateral Review of Systems All systems reviewed & are unremarkable except as noted in HPI & below. Physical Exam . Physical examination reveals a pleasant elderly male. He looks to be in reasonably good health. Examination of the left knee reveal patient ambulates with a fairly normal gait. His Slight varus alignment to his knee. Has got prominent veins superficially distally. Small knee effusion. He is tender over the medial joint line. Range of motion is 0-1 25. No particular pain with hip motion. He is neurologically intact. Negative straight leg raise. Constitutional WD/WN, vitals as above Respiratory normal respiratory effort, lungs clear to auscultation Cardiovascular RRR, no murmur, no edema Gastrointestinal (Abdomen) normal bowel sounds, soft, nontender, no hepatosplenomegaly Results & Data Results & Data Laboratory Results . Diagnostic Findings . X-rays of the left knee were reviewed. Shows moderate medial joint space narrowing. This is most severely seen on the 45 degree flexion films. MRI of the knee was reviewed. That shows a bone marrow edema of the medial femoral condyle with full-thickness cartilage loss. He has got extrusion of his medial meniscus with some tearing. PG Care Time/CCT Total # of Minutes Spent Total Time Spent with Patient: Total time spent is greater than 50% in coordination of care (as documented) at patient's floor/unit and/or counseling patient: Coding Level of Care Code None Diagnoses Osteoarthritis of left knee M17.12 Atrial fibrillation I48.91 CAD (coronary artery disease) I25.10 Type 2 diabetes mellitus E11.9 Hyperlipidemia E78.5 Hypertension I10
[2025-02-21] MEDS: LR 500ML BOLUS, THEN 15ML/HR IV SCH (05:58)
[2025-02-21] MEDS: LR 60ML/HR IV SCH (05:59)
[2025-02-21] MEDS: FAMOTIDINE 20 MG TAB PO SCH (06:00)
[2025-02-21] MEDS ORDERED: LR 15ML/HR IV SCH (06:00)
[2025-02-21] MEDS: ACETAMINOPHEN 500 MG TAB PO SCH ×2 (06:00→14:26)
[2025-02-21] MEDS: CeleBREX 200 MG CAP PO SCH (06:00)
[2025-02-21] MEDS: dexAMETHasone**PF** 10 MG/ML VIAL IV SCH (06:00)
[2025-02-21] MEDS: METOCLOPRAMIDE HCL 10 MG TABLET PO SCH (06:00)
[2025-02-21] MEDS ORDERED: MIDAZOLAM HCL 1 MG/ML 2ML VIAL ONE ×2 (06:19→06:39)
[2025-02-21] MEDS ORDERED: LIDOCAINE 2% 2 ML VIAL/AMP(20MG/ML) INFIL ONE (06:21)
[2025-02-21] MEDS ORDERED: BUPIVACAINE 0.5 % 5 MG/1 ML PF 10ML VIAL ONE (06:29)
[2025-02-21] MEDS ORDERED: ROPIVACAINE 0.5% 5 MG/ML 30 ML VIAL ONE (06:30)
[2025-02-21] MEDS ORDERED: ATROPINE SULFATE 0.1 MG/ML 10ML SYR IV PRN (06:36)
[2025-02-21] MEDS ORDERED: ONDANSETRON INJ 2 MG/ML 2 ML VIAL IV PRN ×2 (06:36→11:49)
--- NOTE | 2025-02-21 06:39 | History & Physical Bridge Note ---
Date of Service February 21, 2025 History & Physical Bridge Note I have examined the patient, reviewed the History & Physical and in the interval since the performance of the History & Physical I have noted the following changes of clinical significance: no changes noted
[2025-02-21] MEDS ORDERED: PROPOFOL IV EMULSION 10 MG/ML 20 ML VIAL IV ONE ×3 (06:40→07:51)
[2025-02-21] MEDS: TRANEXAMIC ACID 1,000 MG **IV Pre-op IV SCH (06:55)
[2025-02-21] MEDS ORDERED: ONDANSETRON INJ 2 MG/ML 2 ML VIAL ONE (07:13)
[2025-02-21] MEDS ORDERED: ePHEDrine sulfate 50 MG/5 ML SYR ONE (07:23)
[2025-02-21] MEDS ORDERED: KETAMINE HCL 10MG/ML SYR ONE (07:32)
[2025-02-21] MEDS: ROPIV 0.5% 246mg, Ketorolac 30mg, EPINEPHrine 0.5mg in NSS INFIL SCH (07:41)
[2025-02-21] MEDS: ORTHO JOINT ANESTHETIC ONE (07:42)
[2025-02-21] MEDS ORDERED: PHENYLEPHRINE 100MCG/ML 5ML SYR ONE ×2 (07:52→08:18)
--- NOTE | 2025-02-21 08:54 | Operative Report ---
PG Post Operative Report Pre & Post Diagnosis Operation Date: 02/21/25 07:00 Pre-Op Diagnosis: Left Knee Osteoarthritis Post-Op Diagnosis: Left Knee Osteoarthritis I identified the patient and participated in the time-out.: Yes Procedure Operation Date: 02/21/25 07:00 Actual Procedures p Left medial uncemented unicompartmental Knee Arthroplasty(Left) - Niall Parada MD Surgeon Naill Parada MD Sweatband Maker Kiran Flores PA-C Estimated Blood Loss 25 Findings Consistent with Post-Op Diagnosis Operative findings revealed advanced medial compartment arthritis with full- thickness cartilage loss of the medial femoral condyle. Did not have a lot of wear of the proximal tibia. ACL was intact. Moderate-sized joint effusion. The trochlea and patellofemoral joint were well-preserved and the lateral co mpartment was well-preserved. Specimens Left knee sent for pathology Anesthesia Type Spinal MAC Complications none Disposition Accompanied Patient To Recovery: No Indications The patient is a 79-year-old gentleman whose had a recent history of progressive increasing left medial knee pain discomfort. He failed conservative measures. X-rays and MRI showed progressive early arthritic medial compartment of his knee. He failed all conservative measures. He elected proceed with left partial knee replacement. Description of Procedure Operative implants consisted of: 1 [employer] uncemented medium medial femoral component. 2. [employer] uncemented left medial size D tibial tray. 3. 4 mm mobile-bearing polyethylene insert. The patient was taken to the op room, identified, and placed on the operating table in the supine position. All contact areas were appropriately padded. IV antibiotics provided by anesthesia team. A spinal anesthetic and adductor canal block had been bided in holding area. A left phytate was then placed. The left lower extremity was then prepped and draped in usual sterile fashion. The left leg was elevated and exsanguinated with use of an Esmarch and Jaya placed at 300 mmHg. An anterior approach to the left knee was then performed to a longitudinal incision beginning at the superior pole of patella extending just medial to the tibial tubercle. Sharp dissection was got through subcutaneous tissue down to the extensor mechanism. A medial parapatellar arthrotomy was then performed with the incision splitting the VMO and then extending just medial to the tibial tubercle. Some slight subperiosteal dissection was carried out medially taking great care to protect the MCL. The fat pad was resected. I then examined the knee and the medial compartment showed significant arthritic change. The everything else looked quite well so we elected proceed with a partial knee replacement. A small osteophyte was removed from the intercondylar notch area. The femur was sized to a size medium. The medium spoon was placed and attached to the tibial guide. The tibial guide was pinned in place. The proximal tibial cut was made with a transverse cut first and then the vertical cut second taking great care to protect the tibial plateau. We then sized the knee in the defect most appropriately. The 4 feeler gauge fit in nicely. The 5 was a bit tight so we elect to place the 4 and proceed along with this. Attention then drawn the femur. The distal femur was entered with the guidewire and drill. The IM ubaldo was placed. A medium femoral component was then placed and attached to the IM ubaldo and the holes were drilled for the femoral component. The posterior cutting guide was placed and the posterior cut was made. The posterior bone fragment was removed. The medial meniscus remnant was then excised. I then used a 0 spigot and milled the distal femur. We then trialed the knee and the 4 feeler gauge fit and appropriately in flexion and the 1 in extension. We then used a 3 spigot to milled the distal femur. We then trialed again and the 4 insert fit appropriately in flexion extension. We prepared the distal femur with the preparation device. The posterior osteophyte was removed. The anterior milling device was used to create the remainder of the cup opponent space for the femoral component. The tibial tray was then pinned in place. The toothbrush blade was used to used to create the defect for the tibial tray. We then trialed the knee and the 4 insert fit appropriately. We applied elected to place these implants. All trial implants were removed. I irrigated extensively. A left size D medium tibial tray was then tapped in place. The medium femoral component was placed. A 4 mobile-bearing insert was placed. I then injected locally with 100 cc of Ortho mix. We then irrigated the wound extensively and then the tourniquet was then let down for final tourniquet time of 54 minutes. Hemostasis surgery Specter cautery. The extensor mechanism then closed with #1 Vicryl suture in a [id number] fashion. Extensor Meclomen checked found to be intact to the subcutaneous tissue then closed with 2 Dexon suture in a buried interrupted fashion skin was then closed with skin gus. Leg was then cleaned and dried and a sterile dressing with Xeroform, 4 fours, sterile cast padding and an Antonio bandage was applied. The patient then transferred to the recovery room in stable condition. Patient tolerated the procedure well and there were no complications. Kiran Flores, my physician media assistant, was present for the entire procedure. His assistance was essential and required for appropriate patient positioning, prepping and draping, surgical exposure, performing the technical details of the operation, placement the implants, closure of the wound, and placement of the sterile bandage. I attest to the content of the Intraoperative Record and any orders documented therein. Any exceptions are noted below.
--- NOTE | 2025-02-21 09:21 | XRay Report ---
XR knee LT 1 or 2V routine HISTORY: 79 years-old Male Surgical Post Op left knee total joint arthroplasty COMPARISON: Knee radiograph 10/03/2024 TECHNIQUE: 2 views of the left knee FINDINGS: Medial compartment hemiarthroplasty demonstrates satisfactory alignment. Mild osteoarthritis of the l ateral and patellofemoral compartments. Anterior midline skin gus with expected postoperative sof t tissue swelling and deep tissue air. No acute fracture, dislocation or osseous erosion. Arterial ca lcifications. IMPRESSION: Status post medial hemiarthroplasty with expected postoperative changes. ACT 112: Negative or not required by law. The above report was generated using voice recognition software. It may contain grammatical, syntax o r spelling errors. Electronically signed by: Seth Roth M.D. 02/21/2025 9:19 AM
[2025-02-21] MEDS ORDERED: SENNA 8.6 MG TAB PO SCH (11:49)
[2025-02-21] MEDS ORDERED: HYDROmorphone INJ 0.5 MG/0.5 ML SYR IV PRN (11:49)
[2025-02-21] MEDS ORDERED: ACETAMINOPHEN 500 MG TAB PO SCH (11:49)
[2025-02-21] MEDS ORDERED: ALUMINUM/MAGNESIUM SUSP 30 ML UDC PO PRN (11:49)
[2025-02-21] MEDS ORDERED: NALOXONE HCL 0.4 MG/1 ML VIAL/CARP IV PRN (11:49)
[2025-02-21] MEDS ORDERED: MAGNESIUM HYDROXIDE SUSP 30 ML UDC PO PRN (11:49)
[2025-02-21] MEDS ORDERED: METOCLOPRAMIDE HCL INJ 5 MG/ML 2 ML VIAL IV PRN (11:49)
[2025-02-21] MEDS: SODIUM CHLORIDE 0.9% 1,000 ML IV SCH (12:53)
[2025-02-21] MEDS: KETOROLAC TROMETHAMINE 15 MG/ML VIAL IV SCH (13:18)
[2025-02-21] MEDS: TRANEXAMIC ACID / 0.7% NACL 1,000 MG/100 ML BAG IV SCH (14:26)
[2025-02-21] MEDS: ASCORBIC ACID 500 MG TAB PO SCH (17:16)
[2025-02-21] MEDS: DOFETILIDE 125 MCG CAPSULE PO SCH (21:36)
[2025-02-21] MEDS: SENNA 8.6 MG TAB PO SCH (21:36)
[2025-02-21] MEDS: DOCUSATE SODIUM 100 MG CAP PO SCH (21:36)
[2025-02-21] MEDS: ROSUVASTATIN CALCIUM 20 MG TAB PO SCH (22:07)
[2025-02-22 07:16] LABS: Hematocrit (blood only) 40.3 % (42.0-52.0); Hemoglobin 14.1 g/dL (14.0-18.0); Mean Corpuscular Hemoglobin 30.7 pg (25.0-34.0); Mean Corpuscular Volume 87.8 fL (80.0-100.0); Platelet Count 162 K/uL (130-400); RDW Standard Deviation 41.4 fL (36.4-46.3); Red Blood Count 4.59 M/uL (4.70-6.10); White Blood Count 9.08 K/ul (4.8-10.8)
[2025-02-22 07:55] LABS: Anion Gap 7.0 (3-11); Blood Urea Nitrogen 18.0 mg/dl (6-23); Calcium 8.7 mg/dl (8.6-10.3); Carbon Dioxide 26.0 mmol/L (21-32); Chloride 104.0 mmol/L (98-107); Creatinine Clr Calc Pharmacy 79.0 ml/min; Glucose 113.0 mg/dl (70-99(Fasting)); Potassium 3.8 mmol/L (3.5-5.1); Sodium 137.0 mmol/L (136-145)
[2025-02-22] MEDS: dexAMETHasone 10 MG in SYRINGE 0 ML IV SCH (08:11)
[2025-02-22] MEDS: TAMSULOSIN HCL 0.4 MG CAP PO SCH (08:13)
[2025-02-22] MEDS: CHOLECALCIFEROL 25 MCG (1000 UNITS) TAB PO SCH (08:14)
[2025-02-22] MEDS: APIXABAN 2.5 MG TAB PO SCH (08:14)
[2025-02-22] MEDS: MAGNESIUM OXIDE 400 MG TAB PO SCH (08:14)
[2025-02-22] MEDS: METOPROLOL SUCC 25MG EXT REL TAB PO SCH (08:14)
[2025-02-22] MEDS: ASPIRIN 81 MG ECTAB PO SCH (08:14)
[2025-02-22] MEDS: MULTIVITAMIN TAB PO SCH (08:15)
--- NOTE | 2025-02-22 08:37 | Orthopedic Progress Note ---
Date of Service February 22, 2025 Assessment & Plan (1) Status post total left knee replacement: * Continue Current Treatment * Disposition: home * Daily treatment: Physical Therapy/ Occupational Therapy per protocol * Weight bearing status: WBAT * Continue to monitor for ABLA * Pain control * DVT prophylaxis, Resume Eliquis at prophyactic dose today and regular dose tomorrow. * Office/hospital f/u 2 weeks for progress check and staple/suture removal * Plan for discharge today pending PT/OT clearance Subjective .Active Problems: S/p left TKA POD 1 79 y/o male s/p left TKA. Doing well overall, pain managed and improved function. Denies fever/chills, chest pain/SOB, nausea/vomiting. Otherwise no complaints. Review of Systems All systems reviewed & are unremarkable except as noted in HPI & below. Physical Exam . * General: Alert and oriented, no acute distress * Constitutional: well-developed, well-nourished. * Respiratory: Normal respiratory effort, no distress * Gastrointestinal: No tenderness to palpation, no rigidity or guarding. * Skin: No rash or lesion. * Neurologic: Grossly normal * Musculoskeletal: left knee surgical dressing with scant bloody drainage at distal incision, otherwise CDI, not removed for exam. Otherwise no obvious deformity or overlying skin changes RLE. Diffuse TTP distal thigh and knee region. Otherwise no specific tenderness of proximal thigh, lower leg, foot/ankle. AROM knee flexion 90 degrees. AROM foot/ankle intact. Sensation intact plantar/dorsal foot. Brisk capillary refill. Results & Data Results & Data Laboratory Results . Diagnostic Findings . Knee X-Ray 02/21/25 08:44 XR knee LT 1 or 2V routine HISTORY: 79 years-old Male Surgical Post Op left knee total joint arthroplasty COMPARISON: Knee radiograph 10/03/2024 TECHNIQUE: 2 views of the left knee FINDINGS: Medial compartment hemiarthroplasty demonstrates satisfactory alignment. Mild osteoarthritis of the lateral and patellofemoral compartments. Anterior midline skin gus with expected postoperative soft tissue swelling and deep tissue air. No acute fracture, dislocation or osseous erosion. Arterial calcifications. IMPRESSION: Status post medial hemiarthroplasty with expected postoperative changes. ACT 112: Negative or not required by law. The above report was generated using voice recognition software. It may contain grammatical, syntax or spelling errors. Electronically signed by: Seth Roth M.D. 02/21/2025 9:19 AM PG Care Time/CCT Total # of Minutes Spent Total Time Spent with Patient: Total time spent is greater than 50% in coordination of care (as documented) at patient's floor/unit and/or counseling patient: Coding Level of Care Code 76268 Post Operative Follow-Up Diagnoses Status post total left knee replacement Z96.652
[2025-02-22 10:42] VITALS: BP 120/54; PULSE 73; RESP 18; TEMP 98.1; O2SAT 95
--- NOTE | 2025-02-23 11:25 | Anesthesiology Progress Note ---
Date of Service February 22, 2025 Anesthesia Post Procedure Pain Intensity Left Knee: Pain Intensity: 2 Transfer of Care Handoff Completed per policy Notes Mental Status: alert / awake / arousable and participated in evaluation Patient Amnestic to Procedure: Yes Nausea / Vomiting: adequately controlled Pain: adequately controlled Airway Patency, RR, SpO2: stable & adequate BP & HR: stable & adequate Hydration State: stable & adequate Neuraxial Anesthesia: was administered and sensory block is resolving Anesthetic Complications: no major complications apparent and Pt Satisfied with anesthetic care
== END 2025-02-22 11:45 | disposition home health service (06) ==
LOC: PACUINP 05:28 → ASU 05:28 → 3E 12:19